=== PATIENT | male | born 1940 | race Caucasian/White ===

== ENCOUNTER 2018-04-11 06:31 | Inpatient (IN) | payer BC, MEDICARE, OTHER ==
[2018-04-11 07:42] LABS: OCCULT BLOOD STOOL POSITIVE (NEGATIVE)
[2018-04-11 08:01] LABS: ADD MAN DIFF? NO
[2018-04-11] MEDS: SOD CHLORIDE 0.9% 500 ML IV (08:11)
[2018-04-11 08:14] LABS: WHITE BLOOD COUNT 11.7 10^3/ul (4.8-10.8)
[2018-04-11 08:14] LABS: BASOPHIL # 0.1 10^3/ul (0.0-0.1); BASOPHILS % 0.4 % (0.0-2.0); EOSINOPHILS # 0.2 10^3/ul (0.0-0.5); EOSINOPHILS % 1.3 % (0.0-7.0); HEMATOCRIT 30.9 % (42.0-52.0); HEMOGLOBIN 9.4 g/dl (14.0-18.0); LYMPHOCYTES % 8.7 % (15.0-51.0); MEAN CORPUSCULAR HEMOGLOBIN 30.9 pg (29.0-33.0); MEAN CORPUSCULAR HGB CONC 30.4 g/dl (32.0-37.0); MEAN CORPUSCULAR VOLUME 101.6 fl (82.0-101.0); MEAN PLATELET VOLUME 10.8 fl (7.4-10.4); MONOCYTE # 1.2 10^3/ul (0.3-0.9); MONOCYTES % 10.6 % (0.0-11.0); NEUTROPHIL # 9.2 10^3/ul (1.6-7.5); NEUTROPHILS % 78.5 % (39.0-77.0); PLATELET COUNT 253 10^3/UL (140-415); RED BLOOD COUNT 3.04 10^6/ul (4.70-6.10); RED CELL DISTRIBUTION WIDTH 17.4 % (11.5-14.5)
[2018-04-11 08:24] LABS: INR 1.14; PROTIME 14.7 Sec (11.9-14.9); PT RATIO 1.1
[2018-04-11 08:25] LABS: PARTIAL THROMBOPLASTIN TIME 33.4 Sec (23.0-35.0)
[2018-04-11 08:31] LABS: ALANINE AMINOTRANSFERASE 14 IU/L (13-69); ALBUMIN 2.9 g/dl (3.3-4.9); ALBUMIN/GLOBULIN RATIO 0.87; ALKALINE PHOSPHATASE 100 IU/L (42-121); AMYLASE 34 U/L (11-123); ASPARTATE AMINO TRANSFERASE 11 IU/L (15-46); BLOOD UREA NITROGEN 48 mg/dl (7-20); CALCIUM 8.2 mg/dl (8.4-10.2); CARBON DIOXIDE 30 mmol/L (21-31); CREATININE 6.67 mg/dl (0.61-1.24); TOTAL PROTEIN 6.2 g/dl (6.1-8.1)
[2018-04-11 08:32] LABS: LIPASE < 10 U/L (23-300)
[2018-04-11 08:35] LABS: GLUCOSE 45 mg/dl (70-220)
[2018-04-11 08:39] LABS: TROPONIN-I 0.052 ng/ml (0.000-0.120)
[2018-04-11 08:45] LABS: ANION GAP 12 (5-13); POTASSIUM 5.1 mmol/L (3.5-5.1); SODIUM 137 mmol/L (135-144)
[2018-04-11] MEDS: DEXTROSE 50% 50 ML SYRINGE IV (08:47)
[2018-04-11 09:04] LABS: CHLORIDE 95 mmol/L (97-110)
[2018-04-11] MEDS: SOD CHLORIDE 0.9% 100 ML (10:45)
[2018-04-11] MEDS: IOHEXOL 300MG/ML 150 ML BTL (10:45)
[2018-04-11] MEDS ORDERED: ONDANSETRON 4 MG INJ IV (11:00)
[2018-04-11] MEDS ORDERED: ACETAMINOPHEN 325 MG TAB PO (11:00)
[2018-04-11] MEDS ORDERED: NACL 0.9% 3 ML SYG IV (13:00)
[2018-04-11] MEDS ORDERED: ZOLPIDEM 5 MG TAB PO (13:00)
[2018-04-11] MEDS ORDERED: HYDROCODONE/APAP (5/325) TAB PO (13:00)
[2018-04-11] MEDS ORDERED: MAGNESIUM HYDROXIDE 30ML CUP PO (13:00)
[2018-04-11] MEDS ORDERED: DOCUSATE SODIUM 100 MG CAP PO (13:00)
[2018-04-11] MEDS ORDERED: morphine 2 MG INJ IV (13:00)
[2018-04-11] MEDS ORDERED: GLUCOSE GEL 15 GRAM TUBE PO ×2 (13:30)
[2018-04-11] MEDS ORDERED: GLUCAGON 1 MG INJ IM (13:30)
[2018-04-11] MEDS ORDERED: GLUCOSE GEL 15 GRAM TUBE BUCCAL (13:30)
[2018-04-11] MEDS: INSULIN ASPART [NOVOLOG] 3 ML PEN SC ×2 (18:00→21:00)
[2018-04-11] MEDS ORDERED: MIDODRINE 5 MG TAB PO (18:00)
[2018-04-11] MEDS: SEVELAMER CARBONATE 0.8 GM PKT PO (18:41)
[2018-04-11] MEDS: DEXTROSE 5%-0.45% NACL 1,000 ML IV (18:56)
[2018-04-11] MEDS: NORTRIPTYLINE 10 MG CAP PO (21:00)
[2018-04-11] MEDS: FAMOTIDINE 20 MG TAB PO (21:49)
[2018-04-12] MEDS: ACCU-CHEK XX (01:41)
[2018-04-12] MEDS: LEVOTHYROXINE 50 MCG TAB PO (06:29)
[2018-04-12 06:51] LABS: ADD MAN DIFF? NO
[2018-04-12 06:54] LABS: WHITE BLOOD COUNT 12.4 10^3/ul (4.8-10.8)
[2018-04-12 06:54] LABS: BASOPHIL # 0.1 10^3/ul (0.0-0.1); BASOPHILS % 0.8 % (0.0-2.0); EOSINOPHILS # 0.2 10^3/ul (0.0-0.5); EOSINOPHILS % 1.9 % (0.0-7.0); HEMATOCRIT 30.6 % (42.0-52.0); HEMOGLOBIN 9.3 g/dl (14.0-18.0); LYMPHOCYTES # 0.8 10^3/ul (0.8-2.9); LYMPHOCYTES % 6.4 % (15.0-51.0); MEAN CORPUSCULAR HEMOGLOBIN 31.1 pg (29.0-33.0); MEAN CORPUSCULAR HGB CONC 30.4 g/dl (32.0-37.0); MEAN CORPUSCULAR VOLUME 102.3 fl (82.0-101.0); MEAN PLATELET VOLUME 10.6 fl (7.4-10.4); MONOCYTE # 1.1 10^3/ul (0.3-0.9); NEUTROPHIL # 10.1 10^3/ul (1.6-7.5); NEUTROPHILS % 81.5 % (39.0-77.0); PLATELET COUNT 264 10^3/UL (140-415); RED BLOOD COUNT 2.99 10^6/ul (4.70-6.10); RED CELL DISTRIBUTION WIDTH 17.4 % (11.5-14.5)
[2018-04-12 07:35] LABS: OCCULT BLOOD STOOL POSITIVE (NEGATIVE)
[2018-04-12] MEDS: FAMOTIDINE 20 MG TAB PO (08:19)
[2018-04-12] MEDS: SEVELAMER CARBONATE 0.8 GM PKT PO ×3 (08:19→17:15)
[2018-04-12] MEDS: FOLIC ACID 1 MG TAB PO (08:19)
[2018-04-12] MEDS: NORTRIPTYLINE 10 MG CAP PO ×3 (08:20→20:37)
[2018-04-12] MEDS: CHOLECALCIFEROL 1,000 UNIT TAB PO (08:20)
[2018-04-12] MEDS: INSULIN ASPART [NOVOLOG] 3 ML PEN SC ×4 (08:27→20:36)
[2018-04-12 08:33] LABS: ANION GAP 15 (5-13); BLOOD UREA NITROGEN 59 mg/dl (7-20); CALCIUM 8.2 mg/dl (8.4-10.2); CARBON DIOXIDE 24 mmol/L (21-31); CHLORIDE 96 mmol/L (97-110); CREATININE 7.88 mg/dl (0.61-1.24); GLUCOSE 247 mg/dl (70-220); MAGNESIUM 1.9 mg/dl (1.7-2.5); PHOSPHORUS 7.8 mg/dl (2.5-4.9); SODIUM 135 mmol/L (135-144)
[2018-04-12 08:43] LABS: POTASSIUM 6.2 mmol/L (3.5-5.1)
[2018-04-12] MEDS: SODIUM POLYSTYRENE 15 GM KIT (POWDER + SORBITOL) GTB (09:24)
[2018-04-12 09:59] LABS: HEMOGLOBIN A1C 6.4 % (0-5.9)
[2018-04-12] MEDS: MIDODRINE 5 MG TAB PO (10:08)
[2018-04-12] MEDS: INSULIN GLARGINE [LANTus] (100 UNITS/ML) SYG SC (12:32)
[2018-04-12 13:51] LABS: HEPATITIS B SURFACE ANTIGEN NEGATIVE (NEGATIVE)
[2018-04-12 14:08] LABS: HEPATITIS B SURFACE ANTIBODY POSITIVE (NEGATIVE)
[2018-04-12 16:24] LABS: POTASSIUM 4.1 mmol/L (3.5-5.1)
[2018-04-13] MEDS: ACCU-CHEK XX (02:00)
[2018-04-13] MEDS: LEVOTHYROXINE 50 MCG TAB PO (06:36)
[2018-04-13 07:30] LABS: ANION GAP 13 (5-13); BLOOD UREA NITROGEN 29 mg/dl (7-20); CALCIUM 8.3 mg/dl (8.4-10.2); CARBON DIOXIDE 31 mmol/L (21-31); CHLORIDE 93 mmol/L (97-110); CREATININE 5.56 mg/dl (0.61-1.24); PHOSPHORUS 5.8 mg/dl (2.5-4.9); POTASSIUM 4.3 mmol/L (3.5-5.1); SODIUM 137 mmol/L (135-144); URIC ACID 4.9 mg/dl (3.1-7.9)
[2018-04-13 07:35] LABS: GLUCOSE 44 mg/dl (70-220)
[2018-04-13] MEDS: INSULIN ASPART [NOVOLOG] 3 ML PEN SC ×4 (07:44→20:43)
[2018-04-13] MEDS: SEVELAMER CARBONATE 0.8 GM PKT PO ×3 (07:49→17:41)
[2018-04-13] MEDS: FOLIC ACID 1 MG TAB PO (08:10)
[2018-04-13] MEDS: FAMOTIDINE 20 MG TAB PO (08:10)
[2018-04-13] MEDS: CHOLECALCIFEROL 1,000 UNIT TAB PO (08:10)
[2018-04-13] MEDS: NORTRIPTYLINE 10 MG CAP PO ×3 (08:11→20:44)
[2018-04-13] MEDS: INSULIN GLARGINE [LANTus] (100 UNITS/ML) SYG SC (08:35)
[2018-04-13] MEDS: BISACODYL (EC) 5 MG TAB PO ×3 (13:12→22:25)
[2018-04-13] MEDS: PEG/ELECTROLYTES 4L BTL PO ×2 (15:23→22:26)
[2018-04-13 16:23] LABS: CARCINOEMBRYONIC ANTIGEN 2.2 ng/ml (0.0-5.0)
[2018-04-13] MEDS ORDERED: MAGNESIUM CITRATE 300 ML BTL PO (17:30)
[2018-04-13] MEDS ORDERED: POLYETHYLENE GLYCOL 3350 119 GM POWDER PO (18:30)
[2018-04-14] MEDS: ACCU-CHEK XX (00:56)
[2018-04-14] MEDS ORDERED: POLYETHYLENE GLYCOL 3350 119 GM POWDER PO (06:00)
[2018-04-14] MEDS: LEVOTHYROXINE 50 MCG TAB PO (06:46)
[2018-04-14] MEDS: SEVELAMER CARBONATE 0.8 GM PKT PO ×3 (07:25→16:58)
[2018-04-14 07:44] LABS: ADD MAN DIFF? NO
[2018-04-14 07:53] LABS: WHITE BLOOD COUNT 7.6 10^3/ul (4.8-10.8)
[2018-04-14 07:53] LABS: BASOPHIL # 0.1 10^3/ul (0.0-0.1); BASOPHILS % 1.1 % (0.0-2.0); EOSINOPHILS # 0.4 10^3/ul (0.0-0.5); EOSINOPHILS % 5.5 % (0.0-7.0); HEMATOCRIT 31.2 % (42.0-52.0); HEMOGLOBIN 9.6 g/dl (14.0-18.0); LYMPHOCYTES # 1.2 10^3/ul (0.8-2.9); LYMPHOCYTES % 15.8 % (15.0-51.0); MEAN CORPUSCULAR HEMOGLOBIN 31.2 pg (29.0-33.0); MEAN CORPUSCULAR HGB CONC 30.8 g/dl (32.0-37.0); MEAN CORPUSCULAR VOLUME 101.3 fl (82.0-101.0); MEAN PLATELET VOLUME 10.6 fl (7.4-10.4); MONOCYTE # 0.9 10^3/ul (0.3-0.9); MONOCYTES % 11.8 % (0.0-11.0); NEUTROPHILS % 65.3 % (39.0-77.0); PLATELET COUNT 280 10^3/UL (140-415); RED BLOOD COUNT 3.08 10^6/ul (4.70-6.10); RED CELL DISTRIBUTION WIDTH 17.1 % (11.5-14.5)
[2018-04-14] MEDS: INSULIN ASPART [NOVOLOG] 3 ML PEN SC ×4 (07:55→20:44)
[2018-04-14] MEDS ORDERED: BISACODYL (EC) 5 MG TAB PO (08:00)
[2018-04-14] MEDS: INSULIN GLARGINE [LANTus] (100 UNITS/ML) SYG SC (08:00)
[2018-04-14 08:15] LABS: ALANINE AMINOTRANSFERASE 14 IU/L (13-69); ALBUMIN 2.9 g/dl (3.3-4.9); ALBUMIN/GLOBULIN RATIO 0.87; ALKALINE PHOSPHATASE 98 IU/L (42-121); ANION GAP 17 (5-13); ASPARTATE AMINO TRANSFERASE 12 IU/L (15-46); BLOOD UREA NITROGEN 33 mg/dl (7-20); CALCIUM 8.1 mg/dl (8.4-10.2); CARBON DIOXIDE 29 mmol/L (21-31); CHLORIDE 91 mmol/L (97-110); CREATININE 6.77 mg/dl (0.61-1.24); GLUCOSE 88 mg/dl (70-220); POTASSIUM 4.5 mmol/L (3.5-5.1); SODIUM 137 mmol/L (135-144); TOTAL PROTEIN 6.2 g/dl (6.1-8.1)
[2018-04-14] MEDS: NORTRIPTYLINE 10 MG CAP PO ×3 (08:17→20:45)
[2018-04-14] MEDS: CHOLECALCIFEROL 1,000 UNIT TAB PO (08:17)
[2018-04-14] MEDS: FOLIC ACID 1 MG TAB PO (08:17)
[2018-04-14] MEDS: FAMOTIDINE 20 MG TAB PO (08:18)
[2018-04-14 08:23] LABS: PROTIME 14.3 Sec (11.9-14.9); PT RATIO 1.1
[2018-04-14] MEDS ORDERED: ONDANSETRON 4 MG INJ IV (13:00)
[2018-04-14] MEDS ORDERED: FENTAnyl 50 MCG/ML VIAL IV ×3 (13:00)
[2018-04-15] MEDS: ACCU-CHEK XX (02:00)
[2018-04-15] MEDS: LEVOTHYROXINE 50 MCG TAB PO (06:33)
[2018-04-15] MEDS: INSULIN ASPART [NOVOLOG] 3 ML PEN SC ×4 (07:55→21:00)
[2018-04-15] MEDS: INSULIN GLARGINE [LANTus] (100 UNITS/ML) SYG SC (08:00)
[2018-04-15] MEDS: SEVELAMER CARBONATE 0.8 GM PKT PO ×3 (09:11→18:40)
[2018-04-15] MEDS: NORTRIPTYLINE 10 MG CAP PO ×3 (09:11→20:57)
[2018-04-15] MEDS: FAMOTIDINE 20 MG TAB PO (09:13)
[2018-04-15] MEDS: CHOLECALCIFEROL 1,000 UNIT TAB PO (09:13)
[2018-04-15] MEDS: FOLIC ACID 1 MG TAB PO (09:14)
[2018-04-15] MEDS: ACETAMINOPHEN 325 MG TAB PO (12:57)
[2018-04-15] MEDS ORDERED: morphine LIQ (10 MG/5 ML) CUP PO (23:30)
[2018-04-16] MEDS: ACCU-CHEK XX (02:00)
[2018-04-16 05:56] LABS: ADD MAN DIFF? NO
[2018-04-16] MEDS: LEVOTHYROXINE 50 MCG TAB PO (05:57)
[2018-04-16 06:06] LABS: WHITE BLOOD COUNT 9.2 10^3/ul (4.8-10.8)
[2018-04-16 06:06] LABS: BASOPHIL # 0.1 10^3/ul (0.0-0.1); EOSINOPHILS # 0.4 10^3/ul (0.0-0.5); EOSINOPHILS % 4.2 % (0.0-7.0); HEMATOCRIT 34.7 % (42.0-52.0); HEMOGLOBIN 10.4 g/dl (14.0-18.0); LYMPHOCYTES % 10.6 % (15.0-51.0); MEAN CORPUSCULAR HEMOGLOBIN 30.7 pg (29.0-33.0); MEAN CORPUSCULAR VOLUME 102.4 fl (82.0-101.0); MONOCYTE # 0.8 10^3/ul (0.3-0.9); MONOCYTES % 8.7 % (0.0-11.0); NEUTROPHIL # 6.9 10^3/ul (1.6-7.5); PLATELET COUNT 233 10^3/UL (140-415); RED BLOOD COUNT 3.39 10^6/ul (4.70-6.10); RED CELL DISTRIBUTION WIDTH 17.1 % (11.5-14.5)
[2018-04-16 06:52] LABS: ANION GAP 13 (5-13); BLOOD UREA NITROGEN 29 mg/dl (7-20); CALCIUM 8.3 mg/dl (8.4-10.2); CARBON DIOXIDE 26 mmol/L (21-31); CHLORIDE 97 mmol/L (97-110); CREATININE 6.73 mg/dl (0.61-1.24); GLUCOSE 135 mg/dl (70-220); MAGNESIUM 1.9 mg/dl (1.7-2.5); POTASSIUM 5.6 mmol/L (3.5-5.1); SODIUM 136 mmol/L (135-144)
[2018-04-16] MEDS: INSULIN ASPART [NOVOLOG] 3 ML PEN SC ×4 (07:55→20:11)
[2018-04-16] MEDS: SEVELAMER CARBONATE 0.8 GM PKT PO ×3 (08:07→17:49)
[2018-04-16] MEDS: NORTRIPTYLINE 10 MG CAP PO ×3 (08:08→20:02)
[2018-04-16] MEDS: FOLIC ACID 1 MG TAB PO (08:08)
[2018-04-16] MEDS: FAMOTIDINE 20 MG TAB PO (08:08)
[2018-04-16] MEDS: CHOLECALCIFEROL 1,000 UNIT TAB PO (08:08)
[2018-04-16] MEDS: INSULIN GLARGINE [LANTus] (100 UNITS/ML) SYG SC (08:22)
[2018-04-16] MEDS: MIDODRINE 5 MG TAB PO (09:54)
[2018-04-16] MEDS: GABAPENTIN 100 MG CAP PO (12:38)
[2018-04-16] MEDS: PROPOFOL 20 ML ×2 (20:16)
[2018-04-16] MEDS: PROPOFOL 0 ML (20:16)
[2018-04-17] MEDS: CEPASTAT LOZENGE MT (02:34)
[2018-04-17] MEDS: ACCU-CHEK XX (02:36)
[2018-04-17] MEDS: LEVOTHYROXINE 50 MCG TAB PO (06:14)
[2018-04-17] MEDS: SEVELAMER CARBONATE 0.8 GM PKT PO ×3 (07:28→18:10)
[2018-04-17] MEDS: INSULIN ASPART [NOVOLOG] 3 ML PEN SC ×4 (07:33→20:40)
[2018-04-17] MEDS: INSULIN GLARGINE [LANTus] (100 UNITS/ML) SYG SC (07:42)
[2018-04-17] MEDS: FOLIC ACID 1 MG TAB PO (08:31)
[2018-04-17] MEDS: GABAPENTIN 100 MG CAP PO (08:31)
[2018-04-17] MEDS: FAMOTIDINE 20 MG TAB PO (08:32)
[2018-04-17] MEDS: CHOLECALCIFEROL 1,000 UNIT TAB PO (08:32)
[2018-04-17] MEDS: NORTRIPTYLINE 10 MG CAP PO ×3 (08:32→20:35)
[2018-04-18] MEDS: ACCU-CHEK XX (00:20)
[2018-04-18] MEDS: LEVOTHYROXINE 50 MCG TAB PO (06:17)
[2018-04-18 06:56] LABS: ADD MAN DIFF? NO
[2018-04-18 06:59] LABS: BASOPHIL # 0.1 10^3/ul (0.0-0.1); BASOPHILS % 0.7 % (0.0-2.0); EOSINOPHILS # 0.3 10^3/ul (0.0-0.5); EOSINOPHILS % 2.9 % (0.0-7.0); HEMATOCRIT 34.3 % (42.0-52.0); HEMOGLOBIN 10.5 g/dl (14.0-18.0); LYMPHOCYTES % 9.9 % (15.0-51.0); MEAN CORPUSCULAR HEMOGLOBIN 30.9 pg (29.0-33.0); MEAN CORPUSCULAR HGB CONC 30.6 g/dl (32.0-37.0); MEAN CORPUSCULAR VOLUME 100.9 fl (82.0-101.0); MEAN PLATELET VOLUME 10.6 fl (7.4-10.4); MONOCYTE # 1.3 10^3/ul (0.3-0.9); MONOCYTES % 12.3 % (0.0-11.0); NEUTROPHIL # 7.6 10^3/ul (1.6-7.5); NEUTROPHILS % 73.6 % (39.0-77.0); PLATELET COUNT 212 10^3/UL (140-415); RED CELL DISTRIBUTION WIDTH 16.7 % (11.5-14.5)
[2018-04-18 06:59] LABS: WHITE BLOOD COUNT 10.4 10^3/ul (4.8-10.8)
[2018-04-18 07:53] LABS: ALBUMIN 2.8 g/dl (3.3-4.9); ANION GAP 12 (5-13); BLOOD UREA NITROGEN 25 mg/dl (7-20); CALCIUM 8.2 mg/dl (8.4-10.2); CARBON DIOXIDE 27 mmol/L (21-31); CHLORIDE 98 mmol/L (97-110); CREATININE 6.63 mg/dl (0.61-1.24); GLUCOSE 79 mg/dl (70-220); MAGNESIUM 1.9 mg/dl (1.7-2.5); POTASSIUM 4.6 mmol/L (3.5-5.1); SODIUM 137 mmol/L (135-144)
[2018-04-18] MEDS: INSULIN ASPART [NOVOLOG] 3 ML PEN SC ×4 (07:55→22:00)
[2018-04-18] MEDS: SEVELAMER CARBONATE 0.8 GM PKT PO ×3 (08:01→17:23)
[2018-04-18] MEDS: FOLIC ACID 1 MG TAB PO (08:01)
[2018-04-18] MEDS: GABAPENTIN 100 MG CAP PO (08:01)
[2018-04-18] MEDS: FAMOTIDINE 20 MG TAB PO (08:02)
[2018-04-18] MEDS: CHOLECALCIFEROL 1,000 UNIT TAB PO (08:02)
[2018-04-18] MEDS: INSULIN GLARGINE [LANTus] (100 UNITS/ML) SYG SC (09:14)
[2018-04-18] MEDS: NORTRIPTYLINE 10 MG CAP PO ×3 (13:00→23:55)
[2018-04-18] MEDS: MIDODRINE 5 MG TAB PO (20:09)
[2018-04-18] MEDS: ALBUMIN HUMAN 25% 100 ML IV (20:22)
[2018-04-19] MEDS: ACCU-CHEK XX (02:00)
[2018-04-19 06:19] LABS: ADD MAN DIFF? NO
[2018-04-19 06:41] LABS: WHITE BLOOD COUNT 8.5 10^3/ul (4.8-10.8)
[2018-04-19 06:41] LABS: BASOPHIL # 0.1 10^3/ul (0.0-0.1); BASOPHILS % 0.9 % (0.0-2.0); EOSINOPHILS # 0.4 10^3/ul (0.0-0.5); EOSINOPHILS % 4.4 % (0.0-7.0); HEMATOCRIT 30.9 % (42.0-52.0); HEMOGLOBIN 9.7 g/dl (14.0-18.0); MEAN CORPUSCULAR HEMOGLOBIN 31.4 pg (29.0-33.0); MEAN CORPUSCULAR HGB CONC 31.4 g/dl (32.0-37.0); NEUTROPHILS % 70.3 % (39.0-77.0); PLATELET COUNT 162 10^3/UL (140-415); RED BLOOD COUNT 3.09 10^6/ul (4.70-6.10); RED CELL DISTRIBUTION WIDTH 16.7 % (11.5-14.5)
[2018-04-19] MEDS: LEVOTHYROXINE 50 MCG TAB PO (07:07)
[2018-04-19 07:15] LABS: ALBUMIN 2.8 g/dl (3.3-4.9); ANION GAP 8 (5-13); BLOOD UREA NITROGEN 18 mg/dl (7-20); CALCIUM 8.1 mg/dl (8.4-10.2); CARBON DIOXIDE 33 mmol/L (21-31); CHLORIDE 98 mmol/L (97-110); CREATININE 4.99 mg/dl (0.61-1.24); GLUCOSE 77 mg/dl (70-220); MAGNESIUM 1.8 mg/dl (1.7-2.5); PHOSPHORUS 4.7 mg/dl (2.5-4.9); POTASSIUM 3.9 mmol/L (3.5-5.1); SODIUM 139 mmol/L (135-144)
[2018-04-19] MEDS: INSULIN ASPART [NOVOLOG] 3 ML PEN SC ×4 (07:55→20:36)
[2018-04-19] MEDS: SEVELAMER CARBONATE 0.8 GM PKT PO ×3 (07:58→17:38)
[2018-04-19] MEDS: INSULIN GLARGINE [LANTus] (100 UNITS/ML) SYG SC (08:02)
[2018-04-19] MEDS: CHOLECALCIFEROL 1,000 UNIT TAB PO (08:06)
[2018-04-19] MEDS: FOLIC ACID 1 MG TAB PO (08:06)
[2018-04-19] MEDS: FAMOTIDINE 20 MG TAB PO (08:06)
[2018-04-19] MEDS: GABAPENTIN 100 MG CAP PO (08:06)
[2018-04-19] MEDS: NORTRIPTYLINE 10 MG CAP PO ×3 (08:12→20:32)
[2018-04-20] MEDS: ACCU-CHEK XX (01:10)
[2018-04-20] MEDS: LEVOTHYROXINE 50 MCG TAB PO (06:14)
[2018-04-20 06:38] LABS: ADD MAN DIFF? NO
[2018-04-20 06:44] LABS: WHITE BLOOD COUNT 9.2 10^3/ul (4.8-10.8)
[2018-04-20 06:44] LABS: BASOPHIL # 0.1 10^3/ul (0.0-0.1); BASOPHILS % 0.9 % (0.0-2.0); EOSINOPHILS # 0.3 10^3/ul (0.0-0.5); EOSINOPHILS % 2.9 % (0.0-7.0); HEMATOCRIT 30.4 % (42.0-52.0); HEMOGLOBIN 9.4 g/dl (14.0-18.0); LYMPHOCYTES # 1.4 10^3/ul (0.8-2.9); LYMPHOCYTES % 15.1 % (15.0-51.0); MEAN CORPUSCULAR HEMOGLOBIN 31.5 pg (29.0-33.0); MEAN CORPUSCULAR HGB CONC 30.9 g/dl (32.0-37.0); MEAN PLATELET VOLUME 11.6 fl (7.4-10.4); MONOCYTE # 1.3 10^3/ul (0.3-0.9); NEUTROPHIL # 6.1 10^3/ul (1.6-7.5); NEUTROPHILS % 66.6 % (39.0-77.0); PLATELET COUNT 125 10^3/UL (140-415); RED BLOOD COUNT 2.98 10^6/ul (4.70-6.10); RED CELL DISTRIBUTION WIDTH 16.8 % (11.5-14.5)
[2018-04-20 07:02] LABS: ALBUMIN 2.7 g/dl (3.3-4.9); ANION GAP 8 (5-13); BLOOD UREA NITROGEN 29 mg/dl (7-20); CALCIUM 8.1 mg/dl (8.4-10.2); CARBON DIOXIDE 33 mmol/L (21-31); CHLORIDE 97 mmol/L (97-110); CREATININE 6.37 mg/dl (0.61-1.24); GLUCOSE 134 mg/dl (70-220); MAGNESIUM 1.9 mg/dl (1.7-2.5); PHOSPHORUS 5.1 mg/dl (2.5-4.9); SODIUM 138 mmol/L (135-144)
[2018-04-20 07:05] LABS: POTASSIUM 4.6 mmol/L (3.5-5.1)
[2018-04-20] MEDS: SEVELAMER CARBONATE 0.8 GM PKT PO ×3 (07:45→17:36)
[2018-04-20] MEDS: INSULIN ASPART [NOVOLOG] 3 ML PEN SC ×4 (07:46→20:46)
[2018-04-20] MEDS: INSULIN GLARGINE [LANTus] (100 UNITS/ML) SYG SC (08:09)
[2018-04-20] MEDS: NORTRIPTYLINE 10 MG CAP PO ×3 (08:38→20:33)
[2018-04-20] MEDS: FOLIC ACID 1 MG TAB PO (08:38)
[2018-04-20] MEDS: CHOLECALCIFEROL 1,000 UNIT TAB PO (08:38)
[2018-04-20] MEDS: FAMOTIDINE 20 MG TAB PO (08:38)
[2018-04-20] MEDS: GABAPENTIN 100 MG CAP PO (08:38)
[2018-04-20] MEDS ORDERED: POLYETHYLENE GLYCOL 17 GM PACKET PO (11:00)
[2018-04-21] MEDS: ACCU-CHEK XX (02:00)
[2018-04-21 06:07] LABS: ADD MAN DIFF? NO
[2018-04-21 06:14] LABS: WHITE BLOOD COUNT 9.3 10^3/ul (4.8-10.8)
[2018-04-21 06:14] LABS: BASOPHIL # 0.1 10^3/ul (0.0-0.1); BASOPHILS % 0.9 % (0.0-2.0); EOSINOPHILS # 0.3 10^3/ul (0.0-0.5); EOSINOPHILS % 3.1 % (0.0-7.0); HEMATOCRIT 31.8 % (42.0-52.0); HEMOGLOBIN 9.9 g/dl (14.0-18.0); LYMPHOCYTES # 1.4 10^3/ul (0.8-2.9); MEAN CORPUSCULAR HEMOGLOBIN 30.8 pg (29.0-33.0); MEAN CORPUSCULAR HGB CONC 31.1 g/dl (32.0-37.0); MEAN CORPUSCULAR VOLUME 99.1 fl (82.0-101.0); MEAN PLATELET VOLUME 11.7 fl (7.4-10.4); MONOCYTE # 1.1 10^3/ul (0.3-0.9); MONOCYTES % 12.2 % (0.0-11.0); NEUTROPHIL # 6.4 10^3/ul (1.6-7.5); NEUTROPHILS % 68.5 % (39.0-77.0); PLATELET COUNT 143 10^3/UL (140-415); RED BLOOD COUNT 3.21 10^6/ul (4.70-6.10); RED CELL DISTRIBUTION WIDTH 16.4 % (11.5-14.5)
[2018-04-21 06:50] LABS: ALBUMIN 2.7 g/dl (3.3-4.9); ANION GAP 11 (5-13); BLOOD UREA NITROGEN 40 mg/dl (7-20); CARBON DIOXIDE 29 mmol/L (21-31); CHLORIDE 97 mmol/L (97-110); CREATININE 7.69 mg/dl (0.61-1.24); GLUCOSE 81 mg/dl (70-220); MAGNESIUM 1.8 mg/dl (1.7-2.5); PHOSPHORUS 5.9 mg/dl (2.5-4.9); POTASSIUM 4.6 mmol/L (3.5-5.1); SODIUM 137 mmol/L (135-144)
[2018-04-21] MEDS: LEVOTHYROXINE 50 MCG TAB PO (07:36)
[2018-04-21] MEDS: INSULIN ASPART [NOVOLOG] 3 ML PEN SC ×4 (07:37→21:00)
[2018-04-21] MEDS: SEVELAMER CARBONATE 0.8 GM PKT PO ×3 (07:37→17:33)
[2018-04-21] MEDS: INSULIN GLARGINE [LANTus] (100 UNITS/ML) SYG SC (07:43)
[2018-04-21] MEDS: FAMOTIDINE 20 MG TAB PO (09:06)
[2018-04-21] MEDS: GABAPENTIN 100 MG CAP PO (09:06)
[2018-04-21] MEDS: FOLIC ACID 1 MG TAB PO (09:06)
[2018-04-21] MEDS: CHOLECALCIFEROL 1,000 UNIT TAB PO (09:06)
[2018-04-21] MEDS: NORTRIPTYLINE 10 MG CAP PO ×3 (09:07→21:01)
[2018-04-21] MEDS: ALBUMIN HUMAN 25% 100 ML IV (09:17)
[2018-04-21] MEDS: MIDODRINE 5 MG TAB PO (09:34)
[2018-04-22] MEDS: ACCU-CHEK XX (02:00)
[2018-04-22] MEDS: LEVOTHYROXINE 50 MCG TAB PO (06:05)
[2018-04-22 06:26] LABS: ADD MAN DIFF? NO
[2018-04-22 06:30] LABS: WHITE BLOOD COUNT 8.4 10^3/ul (4.8-10.8)
[2018-04-22 06:30] LABS: BASOPHIL # 0.1 10^3/ul (0.0-0.1); BASOPHILS % 0.7 % (0.0-2.0); EOSINOPHILS # 0.2 10^3/ul (0.0-0.5); EOSINOPHILS % 2.4 % (0.0-7.0); HEMATOCRIT 31.1 % (42.0-52.0); HEMOGLOBIN 9.5 g/dl (14.0-18.0); LYMPHOCYTES # 1.2 10^3/ul (0.8-2.9); LYMPHOCYTES % 13.9 % (15.0-51.0); MEAN CORPUSCULAR HEMOGLOBIN 30.9 pg (29.0-33.0); MEAN CORPUSCULAR HGB CONC 30.5 g/dl (32.0-37.0); MEAN CORPUSCULAR VOLUME 101.3 fl (82.0-101.0); MEAN PLATELET VOLUME 11.9 fl (7.4-10.4); MONOCYTE # 1.1 10^3/ul (0.3-0.9); MONOCYTES % 12.7 % (0.0-11.0); NEUTROPHIL # 5.9 10^3/ul (1.6-7.5); NEUTROPHILS % 69.6 % (39.0-77.0); PLATELET COUNT 134 10^3/UL (140-415); POSITIVE DIFF @See below; RED BLOOD COUNT 3.07 10^6/ul (4.70-6.10); RED CELL DISTRIBUTION WIDTH 16.4 % (11.5-14.5)
[2018-04-22] MEDS: INSULIN ASPART [NOVOLOG] 3 ML PEN SC ×4 (07:54→20:44)
[2018-04-22 08:12] LABS: ANION GAP 10 (5-13); BLOOD UREA NITROGEN 29 mg/dl (7-20); CALCIUM 8.3 mg/dl (8.4-10.2); CARBON DIOXIDE 31 mmol/L (21-31); CHLORIDE 97 mmol/L (97-110); CREATININE 5.35 mg/dl (0.61-1.24); GLUCOSE 121 mg/dl (70-220); MAGNESIUM 1.9 mg/dl (1.7-2.5); PHOSPHORUS 4.3 mg/dl (2.5-4.9); POTASSIUM 4.3 mmol/L (3.5-5.1); SODIUM 138 mmol/L (135-144)
[2018-04-22] MEDS: SEVELAMER CARBONATE 0.8 GM PKT PO ×3 (08:12→17:48)
[2018-04-22] MEDS: INSULIN GLARGINE [LANTus] (100 UNITS/ML) SYG SC (08:12)
[2018-04-22] MEDS: NORTRIPTYLINE 10 MG CAP PO ×3 (09:07→20:44)
[2018-04-22] MEDS: GABAPENTIN 100 MG CAP PO (09:07)
[2018-04-22] MEDS: CHOLECALCIFEROL 1,000 UNIT TAB PO (09:07)
[2018-04-22] MEDS: FOLIC ACID 1 MG TAB PO (09:07)
[2018-04-22] MEDS: FAMOTIDINE 20 MG TAB PO (09:07)
[2018-04-22 09:23] LABS: ANISOCYTOSIS 1+ (0-0); EOSINOPHILS % (M) 1 % (0-7); HYPOCHROMASIA 1+ (0-0); LYMPHOCYTES #M 0.9 10^3/ul (0.8-2.9); LYMPHOCYTES % (M) 11 % (15-51); MONOCYTE #M 0.8 10^3/ul (0.3-0.9); MONOCYTES % (M) 10 % (0-11); PLATELET ESTIMATE DECREASED; POIKILOCYTOSIS 1+ (0-0); POLYCHROMASIA 2+ (0-0); REACTIVE LYMPHOCYTES% (M) 1 % (0-0); SEGMENTED NEUTROPHILS (M) % 77 % (39-77); SMUDGE%M 3 % (0-0)
[2018-04-22] MEDS: SOD CHLORIDE 0.45% 1,000 ML IV (13:00)
[2018-04-22] MEDS: POLYETHYLENE GLYCOL 3350 119 GM POWDER PO (17:48)
[2018-04-23] MEDS: ACCU-CHEK XX (02:00)
[2018-04-23 06:41] LABS: ADD MAN DIFF? NO
[2018-04-23 06:44] LABS: WHITE BLOOD COUNT 11.4 10^3/ul (4.8-10.8)
[2018-04-23 06:44] LABS: BASOPHIL # 0.1 10^3/ul (0.0-0.1); BASOPHILS % 0.6 % (0.0-2.0); EOSINOPHILS # 0.1 10^3/ul (0.0-0.5); EOSINOPHILS % 0.8 % (0.0-7.0); HEMATOCRIT 32.9 % (42.0-52.0); HEMOGLOBIN 9.9 g/dl (14.0-18.0); LYMPHOCYTES # 0.9 10^3/ul (0.8-2.9); LYMPHOCYTES % 8.2 % (15.0-51.0); MEAN CORPUSCULAR HGB CONC 30.1 g/dl (32.0-37.0); MEAN CORPUSCULAR VOLUME 99.7 fl (82.0-101.0); MEAN PLATELET VOLUME 11.7 fl (7.4-10.4); MONOCYTE # 1.3 10^3/ul (0.3-0.9); MONOCYTES % 11.5 % (0.0-11.0); NEUTROPHILS % 78.6 % (39.0-77.0); PLATELET COUNT 153 10^3/UL (140-415); RED CELL DISTRIBUTION WIDTH 16.5 % (11.5-14.5)
[2018-04-23] MEDS: LEVOTHYROXINE 50 MCG TAB PO (06:46)
[2018-04-23] MEDS: SEVELAMER CARBONATE 0.8 GM PKT PO ×3 (06:46→17:25)
[2018-04-23 06:52] LABS: PLATELET COUNT 155 10^3/UL (140-415)
[2018-04-23] MEDS ORDERED: DESFLURANE 15 MIN (07:00)
[2018-04-23] MEDS ORDERED: DEXAMETHASONE 4 MG/ML 5 ML INJ (07:00)
[2018-04-23 07:15] LABS: PROTIME 14.3 Sec (11.9-14.9); PT RATIO 1.1
[2018-04-23 07:16] LABS: ANION GAP 13 (5-13); BLOOD UREA NITROGEN 38 mg/dl (7-20); CALCIUM 8.6 mg/dl (8.4-10.2); CARBON DIOXIDE 29 mmol/L (21-31); CHLORIDE 98 mmol/L (97-110); CREATININE 6.53 mg/dl (0.61-1.24); MAGNESIUM 1.9 mg/dl (1.7-2.5); POTASSIUM 4.6 mmol/L (3.5-5.1); SODIUM 140 mmol/L (135-144)
[2018-04-23 07:18] LABS: PARTIAL THROMBOPLASTIN TIME 24.8 Sec (23.0-35.0); THROMBIN TIME 22.3 SEC (13.8-19.1)
[2018-04-23 07:21] LABS: GLUCOSE 42 mg/dl (70-220)
[2018-04-23] MEDS: DEXTROSE 50% 50 ML SYRINGE IV (07:35)
[2018-04-23] MEDS: INSULIN ASPART [NOVOLOG] 3 ML PEN SC ×3 (07:44→17:55)
[2018-04-23] MEDS: INSULIN GLARGINE [LANTus] (100 UNITS/ML) SYG SC (08:00)
[2018-04-23] MEDS: NORTRIPTYLINE 10 MG CAP PO ×2 (09:00→12:42)
[2018-04-23] MEDS: FAMOTIDINE 20 MG TAB PO (09:00)
[2018-04-23] MEDS: CHOLECALCIFEROL 1,000 UNIT TAB PO (09:00)
[2018-04-23] MEDS: FOLIC ACID 1 MG TAB PO (09:00)
[2018-04-23] MEDS: GABAPENTIN 100 MG CAP PO (09:00)
[2018-04-23] MEDS: DEXTROSE 5%-0.45% NACL 1,000 ML IV ×2 (10:30→23:30)
[2018-04-23] MEDS ORDERED: LIDOCAINE 1% (MDV) 20 ML INJ ×2 (17:38→21:37)
[2018-04-23] MEDS ORDERED: ETOMIDATE 20 MG INJ (17:38)
[2018-04-23] MEDS ORDERED: ROCURONIUM 50 MG INJ (17:38)
[2018-04-23] MEDS ORDERED: PHENYLephrine (100 MCG/ML) 5ML SYG ×4 (18:11→20:25)
[2018-04-23] MEDS ORDERED: metroNIDAZOLE 500 MG/NS (PMX) 100 ML IVPB (18:42)
[2018-04-23] MEDS ORDERED: CEFAZOLIN 1 GM INJ (18:42)
[2018-04-23] MEDS ORDERED: VASOPRESSIN 20 UNITS INJ (19:06)
[2018-04-23 20:16] LABS: IMMEDIATE SPIN CROSSMATCH 1 2
[2018-04-23] MEDS ORDERED: CA CHLORIDE 10% 10 ML SYRINGE (20:40)
[2018-04-23] MEDS ORDERED: ROPIVACAINE 0.5 % 30 ML VIAL (21:36)
[2018-04-23] MEDS ORDERED: ONDANSETRON 4 MG INJ (21:37)
[2018-04-23] MEDS ORDERED: FAMOTIDINE 20 MG INJ (21:38)
[2018-04-23] MEDS ORDERED: SUGAMMADEX SODIUM 200 MG/2 ML VIAL IV (21:49)
[2018-04-23] MEDS ORDERED: FENTAnyl 50 MCG/ML VIAL (22:09)
[2018-04-23 22:27] LABS: ADD MAN DIFF? NO
[2018-04-23 22:30] LABS: WHITE BLOOD COUNT 10.4 10^3/ul (4.8-10.8)
[2018-04-23 22:30] LABS: ABNORMAL IP MESSAGE 1; BASOPHIL # 0.1 10^3/ul (0.0-0.1); BASOPHILS % 0.6 % (0.0-2.0); EOSINOPHILS # 0.1 10^3/ul (0.0-0.5); EOSINOPHILS % 0.7 % (0.0-7.0); HEMATOCRIT 39.3 % (42.0-52.0); LYMPHOCYTES # 0.6 10^3/ul (0.8-2.9); LYMPHOCYTES % 5.3 % (15.0-51.0); MEAN CORPUSCULAR HEMOGLOBIN 30.1 pg (29.0-33.0); MEAN CORPUSCULAR HGB CONC 30.5 g/dl (32.0-37.0); MEAN CORPUSCULAR VOLUME 98.5 fl (82.0-101.0); MEAN PLATELET VOLUME 11.9 fl (7.4-10.4); MONOCYTES % 9.7 % (0.0-11.0); NEUTROPHIL # 8.7 10^3/ul (1.6-7.5); NEUTROPHILS % 83.2 % (39.0-77.0); PLATELET COUNT 128 10^3/UL (140-415); POSITIVE DIFF @See below; RED BLOOD COUNT 3.99 10^6/ul (4.70-6.10); RED CELL DISTRIBUTION WIDTH 17.2 % (11.5-14.5)
[2018-04-23] MEDS ORDERED: HYDROmorphONE 1 MG/ML SYG IV (22:30)
[2018-04-23 22:48] LABS: ANION GAP 11 (5-13); CARBON DIOXIDE 23 mmol/L (21-31); CHLORIDE 103 mmol/L (97-110); POTASSIUM 4.5 mmol/L (3.5-5.1); SODIUM 137 mmol/L (135-144)
[2018-04-23] MEDS ORDERED: hydrALAzine 20 MG INJ IV (23:00)
[2018-04-23] MEDS ORDERED: HYDROmorphONE 0.5 MG/0.5 ML SYG IV ×3 (23:00)
[2018-04-23] MEDS ORDERED: FENTAnyl 50 MCG/ML VIAL IV ×3 (23:00)
[2018-04-23] MEDS ORDERED: ONDANSETRON 4 MG INJ IV (23:00)
[2018-04-24] MEDS: INSULIN ASPART [NOVOLOG] 3 ML PEN SC ×5 (01:22→21:00)
[2018-04-24] MEDS: ACCU-CHEK XX (01:24)
[2018-04-24] MEDS: ACETAMINOPHEN 1000MG/100ML IV 100 ML IVPB ×2 (03:34→09:03)
[2018-04-24 05:19] LABS: ADD MAN DIFF? NO
[2018-04-24 05:29] LABS: WHITE BLOOD COUNT 11.9 10^3/ul (4.8-10.8)
[2018-04-24 05:29] LABS: ABNORMAL IP MESSAGE 1; BASOPHIL # 0.1 10^3/ul (0.0-0.1); BASOPHILS % 0.4 % (0.0-2.0); EOSINOPHILS % 0.3 % (0.0-7.0); HEMATOCRIT 38.6 % (42.0-52.0); HEMOGLOBIN 11.9 g/dl (14.0-18.0); LYMPHOCYTES # 0.4 10^3/ul (0.8-2.9); LYMPHOCYTES % 3.6 % (15.0-51.0); MEAN CORPUSCULAR HGB CONC 30.8 g/dl (32.0-37.0); MEAN CORPUSCULAR VOLUME 97.2 fl (82.0-101.0); MEAN PLATELET VOLUME 12.1 fl (7.4-10.4); MONOCYTE # 0.8 10^3/ul (0.3-0.9); MONOCYTES % 6.5 % (0.0-11.0); NEUTROPHIL # 10.5 10^3/ul (1.6-7.5); NEUTROPHILS % 88.4 % (39.0-77.0); PLATELET COUNT 131 10^3/UL (140-415); POSITIVE DIFF @See below; RED BLOOD COUNT 3.97 10^6/ul (4.70-6.10); RED CELL DISTRIBUTION WIDTH 17.6 % (11.5-14.5)
[2018-04-24] MEDS: metroNIDAZOLE 500 MG/NS (PMX) 100 ML IVPB (05:53)
[2018-04-24 05:56] LABS: ANION GAP 10 (5-13); BLOOD UREA NITROGEN 26 mg/dl (7-20); CALCIUM 7.8 mg/dl (8.4-10.2); CARBON DIOXIDE 20 mmol/L (21-31); CHLORIDE 106 mmol/L (97-110); CREATININE 4.18 mg/dl (0.61-1.24); GLUCOSE 277 mg/dl (70-220); MAGNESIUM 1.6 mg/dl (1.7-2.5); PHOSPHORUS 4.7 mg/dl (2.5-4.9); SODIUM 136 mmol/L (135-144)
[2018-04-24] MEDS: CEFAZOLIN 1 GM/50 ML (PMX) 50 ML IVPB (06:35)
[2018-04-24] MEDS: SEVELAMER CARBONATE 0.8 GM PKT PO ×3 (08:00→17:05)
[2018-04-24] MEDS: INSULIN GLARGINE [LANTus] (100 UNITS/ML) SYG SC (08:33)
[2018-04-24] MEDS: CHOLECALCIFEROL 1,000 UNIT TAB PO (09:00)
[2018-04-24] MEDS: GABAPENTIN 100 MG CAP PO (09:00)
[2018-04-24] MEDS: FOLIC ACID 1 MG TAB PO (09:00)
[2018-04-24] MEDS: morphine 2 MG INJ IV (10:16)
[2018-04-24] MEDS: MAGNESIUM SULFATE 1 GM/D5W 100 ML IVPB (15:58)
[2018-04-24] MEDS: NORepinephrine 8MG/250 ML (PMX 250 ML IV (16:11)
[2018-04-24] MEDS: DEXTROSE 5%-0.45% NACL 1,000 ML IV (16:16)
[2018-04-25] MEDS: ACCU-CHEK XX (04:45)
[2018-04-25 05:30] LABS: ALANINE AMINOTRANSFERASE 19 IU/L (13-69); ALBUMIN 2.1 g/dl (3.3-4.9); ALKALINE PHOSPHATASE 96 IU/L (42-121); ANION GAP 10 (5-13); ASPARTATE AMINO TRANSFERASE 10 IU/L (15-46); BLOOD UREA NITROGEN 34 mg/dl (7-20); CARBON DIOXIDE 24 mmol/L (21-31); CHLORIDE 103 mmol/L (97-110); CREATININE 5.42 mg/dl (0.61-1.24); GLUCOSE 137 mg/dl (70-220); POTASSIUM 4.9 mmol/L (3.5-5.1); SODIUM 137 mmol/L (135-144); TOTAL PROTEIN 4.7 g/dl (6.1-8.1)
[2018-04-25] MEDS: morphine 2 MG INJ IV ×2 (05:33→11:29)
[2018-04-25] MEDS: SEVELAMER CARBONATE 0.8 GM PKT PO ×3 (07:05→17:05)
[2018-04-25 07:46] LABS: ADD MAN DIFF? NO
[2018-04-25 07:49] LABS: ABNORMAL IP MESSAGE 1; BASOPHIL # 0.1 10^3/ul (0.0-0.1); BASOPHILS % 0.4 % (0.0-2.0); EOSINOPHILS # 0.2 10^3/ul (0.0-0.5); EOSINOPHILS % 1.1 % (0.0-7.0); HEMATOCRIT 35.5 % (42.0-52.0); HEMOGLOBIN 11.2 g/dl (14.0-18.0); LYMPHOCYTES # 0.5 10^3/ul (0.8-2.9); LYMPHOCYTES % 3.4 % (15.0-51.0); MEAN CORPUSCULAR HEMOGLOBIN 30.9 pg (29.0-33.0); MEAN CORPUSCULAR HGB CONC 31.5 g/dl (32.0-37.0); MEAN CORPUSCULAR VOLUME 98.1 fl (82.0-101.0); MEAN PLATELET VOLUME 11.7 fl (7.4-10.4); MONOCYTE # 1.2 10^3/ul (0.3-0.9); MONOCYTES % 7.6 % (0.0-11.0); NEUTROPHIL # 13.6 10^3/ul (1.6-7.5); NEUTROPHILS % 86.9 % (39.0-77.0); PLATELET COUNT 128 10^3/UL (140-415); POSITIVE DIFF @See below; RED BLOOD COUNT 3.62 10^6/ul (4.70-6.10); RED CELL DISTRIBUTION WIDTH 17.2 % (11.5-14.5)
[2018-04-25 07:49] LABS: WHITE BLOOD COUNT 15.7 10^3/ul (4.8-10.8)
[2018-04-25] MEDS: INSULIN ASPART [NOVOLOG] 3 ML PEN SC ×4 (09:01→20:57)
[2018-04-25] MEDS: CHOLECALCIFEROL 1,000 UNIT TAB PO (09:29)
[2018-04-25] MEDS: FOLIC ACID 1 MG TAB PO (09:29)
[2018-04-25] MEDS: INSULIN GLARGINE [LANTus] (100 UNITS/ML) SYG SC (09:32)
[2018-04-25] MEDS: PIPER-TAZO 2.25 GM/NS 50 ML IVPB ×3 (09:36→20:57)
[2018-04-25] MEDS ORDERED: PIPER-TAZO 3.375 GM IV (PMX) 100 ML IVPB (12:00)
[2018-04-25] MEDS: FAMOTIDINE 20 MG INJ IV (14:44)
[2018-04-25] MEDS ORDERED: MIDAZOLAM 1 MG/ML 2 ML INJ (15:42)
[2018-04-25] MEDS ORDERED: HEPARIN 1000 UNITS/ML 10 ML INJ ×2 (15:42→16:32)
[2018-04-25] MEDS ORDERED: FENTAnyl 50 MCG/ML VIAL (15:42)
[2018-04-25] MEDS ORDERED: LIDOCAINE 1% (MDV) 20 ML INJ (15:42)
[2018-04-25] MEDS ORDERED: HEPARIN 1000 UNITS/NS (A-LINE) 1,000 ML (15:42)
[2018-04-25] MEDS ORDERED: SOD CHLORIDE 0.9% 500 ML (16:32)
[2018-04-25] MEDS: DEXTROSE 5%-0.45% NACL 1,000 ML IV (17:50)
[2018-04-25] MEDS: DEXTROSE 50% 50 ML SYRINGE IV (20:56)
[2018-04-25] MEDS: ALBUMIN HUMAN 25% 100 ML IV (21:08)
[2018-04-26] MEDS: HEPARIN 1000 UNITS/ML 10 ML INJ CATHETER (00:19)
[2018-04-26] MEDS: ACCU-CHEK XX (02:21)
[2018-04-26] MEDS: morphine 2 MG INJ IV (02:46)
[2018-04-26 04:59] LABS: ADD MAN DIFF? NO
[2018-04-26 05:13] LABS: ABNORMAL IP MESSAGE 1; BASOPHILS % 0.3 % (0.0-2.0); EOSINOPHILS # 0.6 10^3/ul (0.0-0.5); EOSINOPHILS % 3.8 % (0.0-7.0); HEMOGLOBIN 9.6 g/dl (14.0-18.0); LYMPHOCYTES # 0.5 10^3/ul (0.8-2.9); LYMPHOCYTES % 3.4 % (15.0-51.0); MEAN CORPUSCULAR HEMOGLOBIN 30.7 pg (29.0-33.0); MEAN CORPUSCULAR VOLUME 95.8 fl (82.0-101.0); MEAN PLATELET VOLUME 11.7 fl (7.4-10.4); MONOCYTE # 0.9 10^3/ul (0.3-0.9); MONOCYTES % 6.2 % (0.0-11.0); NEUTROPHIL # 12.5 10^3/ul (1.6-7.5); NEUTROPHILS % 85.5 % (39.0-77.0); PLATELET COUNT 103 10^3/UL (140-415); POSITIVE DIFF @See below; RED BLOOD COUNT 3.13 10^6/ul (4.70-6.10); RED CELL DISTRIBUTION WIDTH 16.4 % (11.5-14.5)
[2018-04-26 05:13] LABS: WHITE BLOOD COUNT 14.6 10^3/ul (4.8-10.8)
[2018-04-26 05:44] LABS: ANION GAP 10 (5-13); BLOOD UREA NITROGEN 23 mg/dl (7-20); CALCIUM 8.3 mg/dl (8.4-10.2); CARBON DIOXIDE 26 mmol/L (21-31); CHLORIDE 102 mmol/L (97-110); CREATININE 4.14 mg/dl (0.61-1.24); GLUCOSE 91 mg/dl (70-220); PHOSPHORUS 3.6 mg/dl (2.5-4.9); POTASSIUM 4.1 mmol/L (3.5-5.1); SODIUM 138 mmol/L (135-144)
[2018-04-26] MEDS: PIPER-TAZO 2.25 GM/NS 50 ML IVPB ×3 (06:03→21:11)
[2018-04-26] MEDS: INSULIN ASPART [NOVOLOG] 3 ML PEN SC ×4 (07:35→21:11)
[2018-04-26] MEDS: INSULIN GLARGINE [LANTus] (100 UNITS/ML) SYG SC (08:00)
[2018-04-26] MEDS: FOLIC ACID 1 MG TAB PO (08:42)
[2018-04-26] MEDS: CHOLECALCIFEROL 1,000 UNIT TAB PO (08:42)
[2018-04-26] MEDS: SEVELAMER CARBONATE 0.8 GM PKT PO ×3 (08:42→18:04)
[2018-04-26] MEDS: FAMOTIDINE 20 MG INJ IV (08:42)
[2018-04-26] MEDS: DEXTROSE 50% 50 ML SYRINGE IV (11:40)
[2018-04-26 18:44] LABS: HEMATOCRIT 32.5 % (42.0-52.0); HEMOGLOBIN 10.1 g/dl (14.0-18.0)
[2018-04-26] MEDS: DEXTROSE 5%-0.45% NACL 1,000 ML IV (19:10)
[2018-04-26] MEDS ORDERED: HEPARIN 5,000 UNIT/1 ML VIAL SC (21:00)
[2018-04-27] MEDS: ACCU-CHEK XX (02:00)
[2018-04-27 05:20] LABS: ADD MAN DIFF? NO
[2018-04-27 05:27] LABS: ABNORMAL IP MESSAGE 1; BASOPHILS % 0.3 % (0.0-2.0); EOSINOPHILS # 0.6 10^3/ul (0.0-0.5); EOSINOPHILS % 3.6 % (0.0-7.0); HEMATOCRIT 30.3 % (42.0-52.0); HEMOGLOBIN 9.6 g/dl (14.0-18.0); LYMPHOCYTES # 0.5 10^3/ul (0.8-2.9); LYMPHOCYTES % 3.5 % (15.0-51.0); MEAN CORPUSCULAR HEMOGLOBIN 30.4 pg (29.0-33.0); MEAN CORPUSCULAR HGB CONC 31.7 g/dl (32.0-37.0); MEAN CORPUSCULAR VOLUME 95.9 fl (82.0-101.0); MEAN PLATELET VOLUME 12.3 fl (7.4-10.4); MONOCYTE # 0.8 10^3/ul (0.3-0.9); MONOCYTES % 5.6 % (0.0-11.0); NEUTROPHIL # 13.1 10^3/ul (1.6-7.5); NEUTROPHILS % 86.3 % (39.0-77.0); PLATELET COUNT 104 10^3/UL (140-415); POSITIVE DIFF @See below; RED BLOOD COUNT 3.16 10^6/ul (4.70-6.10); RED CELL DISTRIBUTION WIDTH 16.1 % (11.5-14.5)
[2018-04-27 05:27] LABS: WHITE BLOOD COUNT 15.1 10^3/ul (4.8-10.8)
[2018-04-27] MEDS: ACETAMINOPHEN 325 MG TAB PO (05:59)
[2018-04-27] MEDS: PIPER-TAZO 2.25 GM/NS 50 ML IVPB ×3 (05:59→21:15)
[2018-04-27] MEDS: SEVELAMER CARBONATE 0.8 GM PKT PO ×3 (06:02→17:31)
[2018-04-27 06:19] LABS: ALANINE AMINOTRANSFERASE 16 IU/L (13-69); ALBUMIN 2.2 g/dl (3.3-4.9); ALBUMIN/GLOBULIN RATIO 0.78; ALKALINE PHOSPHATASE 104 IU/L (42-121); ANION GAP 9 (5-13); ASPARTATE AMINO TRANSFERASE < 8 IU/L (15-46); BLOOD UREA NITROGEN 30 mg/dl (7-20); CALCIUM 8.3 mg/dl (8.4-10.2); CARBON DIOXIDE 26 mmol/L (21-31); CHLORIDE 100 mmol/L (97-110); CREATININE 5.14 mg/dl (0.61-1.24); GLUCOSE 175 mg/dl (70-220); POTASSIUM 4.3 mmol/L (3.5-5.1); SODIUM 135 mmol/L (135-144)
[2018-04-27] MEDS: FAMOTIDINE 20 MG INJ IV (08:48)
[2018-04-27] MEDS: FOLIC ACID 1 MG TAB PO (08:48)
[2018-04-27] MEDS: CHOLECALCIFEROL 1,000 UNIT TAB PO (08:48)
[2018-04-27] MEDS: INSULIN ASPART [NOVOLOG] 3 ML PEN SC ×4 (08:57→20:43)
[2018-04-27] MEDS: INSULIN GLARGINE [LANTus] (100 UNITS/ML) SYG SC (09:11)
[2018-04-28] MEDS: ACCU-CHEK XX (02:00)
[2018-04-28] MEDS: DEXTROSE 50% 50 ML SYRINGE IV (02:02)
[2018-04-28 05:20] LABS: ADD MAN DIFF? NO
[2018-04-28 05:33] LABS: ABNORMAL IP MESSAGE 1; BASOPHIL # 0.1 10^3/ul (0.0-0.1); BASOPHILS % 0.3 % (0.0-2.0); EOSINOPHILS # 0.7 10^3/ul (0.0-0.5); EOSINOPHILS % 4.8 % (0.0-7.0); HEMATOCRIT 31.9 % (42.0-52.0); HEMOGLOBIN 10.1 g/dl (14.0-18.0); LYMPHOCYTES # 0.6 10^3/ul (0.8-2.9); LYMPHOCYTES % 3.7 % (15.0-51.0); MEAN CORPUSCULAR HEMOGLOBIN 30.6 pg (29.0-33.0); MEAN CORPUSCULAR HGB CONC 31.7 g/dl (32.0-37.0); MEAN CORPUSCULAR VOLUME 96.7 fl (82.0-101.0); MEAN PLATELET VOLUME 12.3 fl (7.4-10.4); MONOCYTE # 0.9 10^3/ul (0.3-0.9); NEUTROPHIL # 12.8 10^3/ul (1.6-7.5); NEUTROPHILS % 84.4 % (39.0-77.0); PLATELET COUNT 93 10^3/UL (140-415); POSITIVE DIFF @See below; RED CELL DISTRIBUTION WIDTH 15.9 % (11.5-14.5)
[2018-04-28 05:33] LABS: WHITE BLOOD COUNT 15.2 10^3/ul (4.8-10.8)
[2018-04-28 05:55] LABS: ANION GAP 8 (5-13); BLOOD UREA NITROGEN 39 mg/dl (7-20); CALCIUM 8.5 mg/dl (8.4-10.2); CARBON DIOXIDE 26 mmol/L (21-31); CHLORIDE 102 mmol/L (97-110); CREATININE 5.82 mg/dl (0.61-1.24); GLUCOSE 88 mg/dl (70-220); MAGNESIUM 2.1 mg/dl (1.7-2.5); POTASSIUM 4.3 mmol/L (3.5-5.1); SODIUM 136 mmol/L (135-144)
[2018-04-28] MEDS: SEVELAMER CARBONATE 0.8 GM PKT PO ×3 (06:08→17:25)
[2018-04-28] MEDS: PIPER-TAZO 2.25 GM/NS 50 ML IVPB (06:08)
[2018-04-28] MEDS: INSULIN ASPART [NOVOLOG] 3 ML PEN SC ×4 (07:35→22:00)
[2018-04-28] MEDS: INSULIN GLARGINE [LANTus] (100 UNITS/ML) SYG SC (08:36)
[2018-04-28] MEDS: HEPARIN 1000 UNITS/ML 10 ML INJ CATHETER (12:16)
[2018-04-28] MEDS: MIDODRINE 5 MG TAB PO (12:22)
[2018-04-28] MEDS: FAMOTIDINE 20 MG INJ IV (12:22)
[2018-04-28] MEDS: FOLIC ACID 1 MG TAB PO (12:22)
[2018-04-28] MEDS: CHOLECALCIFEROL 1,000 UNIT TAB PO (12:24)
[2018-04-28] MEDS: ONDANSETRON 4 MG INJ IV (12:55)
[2018-04-28] MEDS: KETOROLAC 15 MG INJ IV (14:00)
[2018-04-28] MEDS: BALSAM PERU/CASTOR OIL 60 GM TUBE TOP (22:09)
[2018-04-29] MEDS: ACCU-CHEK XX (02:00)
[2018-04-29] MEDS: LEVOTHYROXINE 50 MCG TAB PO (06:11)
[2018-04-29 08:08] LABS: ADD MAN DIFF? NO
[2018-04-29 08:14] LABS: WHITE BLOOD COUNT 12.7 10^3/ul (4.8-10.8)
[2018-04-29 08:14] LABS: ABNORMAL IP MESSAGE 1; BASOPHILS % 0.3 % (0.0-2.0); EOSINOPHILS # 0.9 10^3/ul (0.0-0.5); EOSINOPHILS % 7.2 % (0.0-7.0); HEMOGLOBIN 9.6 g/dl (14.0-18.0); LYMPHOCYTES # 0.6 10^3/ul (0.8-2.9); MEAN CORPUSCULAR HEMOGLOBIN 29.8 pg (29.0-33.0); MEAN CORPUSCULAR VOLUME 99.4 fl (82.0-101.0); MEAN PLATELET VOLUME 12.3 fl (7.4-10.4); MONOCYTE # 0.8 10^3/ul (0.3-0.9); MONOCYTES % 6.5 % (0.0-11.0); NEUTROPHIL # 10.2 10^3/ul (1.6-7.5); NEUTROPHILS % 80.4 % (39.0-77.0); PLATELET COUNT 78 10^3/UL (140-415); POSITIVE DIFF @See below; RED BLOOD COUNT 3.22 10^6/ul (4.70-6.10); RED CELL DISTRIBUTION WIDTH 15.9 % (11.5-14.5)
[2018-04-29] MEDS: SEVELAMER CARBONATE 0.8 GM PKT PO ×3 (08:58→17:43)
[2018-04-29] MEDS: BALSAM PERU/CASTOR OIL 60 GM TUBE TOP ×2 (08:59→21:02)
[2018-04-29] MEDS: CHOLECALCIFEROL 1,000 UNIT TAB PO (08:59)
[2018-04-29] MEDS: FOLIC ACID 1 MG TAB PO (09:00)
[2018-04-29] MEDS ORDERED: morphine 2 MG INJ IV (09:00)
[2018-04-29] MEDS: DOCUSATE SODIUM 100 MG CAP PO (09:00)
[2018-04-29] MEDS: FAMOTIDINE 20 MG INJ IV (09:01)
[2018-04-29] MEDS: INSULIN ASPART [NOVOLOG] 3 ML PEN SC ×4 (09:03→20:57)
[2018-04-29] MEDS: INSULIN GLARGINE [LANTus] (100 UNITS/ML) SYG SC (09:03)
[2018-04-29] MEDS: HYDROCODONE/APAP (5/325) TAB GTB (09:07)
[2018-04-29] MEDS ORDERED: morphine LIQ (10 MG/5 ML) CUP PO (23:45)
[2018-04-30] MEDS: ACCU-CHEK XX (02:00)
[2018-04-30 05:04] LABS: ADD MAN DIFF? NO
[2018-04-30 05:10] LABS: WHITE BLOOD COUNT 14.4 10^3/ul (4.8-10.8)
[2018-04-30 05:10] LABS: BASOPHILS % 0.3 % (0.0-2.0); EOSINOPHILS # 0.7 10^3/ul (0.0-0.5); EOSINOPHILS % 5.1 % (0.0-7.0); HEMATOCRIT 33.8 % (42.0-52.0); HEMOGLOBIN 10.4 g/dl (14.0-18.0); LYMPHOCYTES # 0.6 10^3/ul (0.8-2.9); LYMPHOCYTES % 4.2 % (15.0-51.0); MEAN CORPUSCULAR HEMOGLOBIN 29.7 pg (29.0-33.0); MEAN CORPUSCULAR HGB CONC 30.8 g/dl (32.0-37.0); MEAN CORPUSCULAR VOLUME 96.6 fl (82.0-101.0); MEAN PLATELET VOLUME 12.7 fl (7.4-10.4); MONOCYTE # 0.8 10^3/ul (0.3-0.9); MONOCYTES % 5.3 % (0.0-11.0); NEUTROPHIL # 12.2 10^3/ul (1.6-7.5); NEUTROPHILS % 84.5 % (39.0-77.0); PLATELET COUNT 102 10^3/UL (140-415); RED CELL DISTRIBUTION WIDTH 16.2 % (11.5-14.5)
[2018-04-30 05:34] LABS: ALBUMIN 2.2 g/dl (3.3-4.9); ANION GAP 9 (5-13); BLOOD UREA NITROGEN 34 mg/dl (7-20); CALCIUM 8.4 mg/dl (8.4-10.2); CARBON DIOXIDE 25 mmol/L (21-31); CHLORIDE 103 mmol/L (97-110); CREATININE 4.87 mg/dl (0.61-1.24); GLUCOSE 173 mg/dl (70-220); PHOSPHORUS 4.1 mg/dl (2.5-4.9); POTASSIUM 4.8 mmol/L (3.5-5.1); SODIUM 137 mmol/L (135-144)
[2018-04-30 05:41] LABS: ANION GAP 8 (5-13); BLOOD UREA NITROGEN 35 mg/dl (7-20); CALCIUM 8.5 mg/dl (8.4-10.2); CARBON DIOXIDE 24 mmol/L (21-31); CHLORIDE 103 mmol/L (97-110); CREATININE 5.16 mg/dl (0.61-1.24); GLUCOSE 178 mg/dl (70-220); POTASSIUM 4.7 mmol/L (3.5-5.1); SODIUM 135 mmol/L (135-144)
[2018-04-30] MEDS: LEVOTHYROXINE 50 MCG TAB PO (06:25)
[2018-04-30] MEDS: MIDODRINE 5 MG TAB PO (07:02)
[2018-04-30] MEDS: ALBUMIN HUMAN 25% 100 ML IV (09:30)
[2018-04-30] MEDS: HEPARIN 1000 UNITS/ML 10 ML INJ CATHETER (10:19)
[2018-04-30] MEDS: INSULIN ASPART [NOVOLOG] 3 ML PEN SC ×4 (11:18→22:32)
[2018-04-30] MEDS: INSULIN GLARGINE [LANTus] (100 UNITS/ML) SYG SC (11:19)
[2018-04-30] MEDS: BALSAM PERU/CASTOR OIL 60 GM TUBE TOP ×2 (11:20→22:27)
[2018-04-30] MEDS: APIXABAN 5 MG TABLET PO ×2 (11:20→20:11)
[2018-04-30] MEDS: DOCUSATE SODIUM 100 MG CAP PO (11:21)
[2018-04-30] MEDS: SEVELAMER CARBONATE 0.8 GM PKT PO ×3 (11:21→17:50)
[2018-04-30] MEDS: FAMOTIDINE 20 MG TAB PO (11:21)
[2018-04-30] MEDS: FOLIC ACID 1 MG TAB PO (11:21)
[2018-04-30] MEDS: CHOLECALCIFEROL 1,000 UNIT TAB PO (11:21)
[2018-04-30] MEDS: KETOROLAC 15 MG INJ IV (15:04)
[2018-04-30] MEDS: HYDROCODONE/APAP (5/325) TAB GTB (22:26)
[2018-05-01] MEDS: KETOROLAC 15 MG INJ IV ×2 (00:34→07:01)
[2018-05-01] MEDS: ACCU-CHEK XX (02:08)
[2018-05-01] MEDS: INSULIN ASPART [NOVOLOG] 3 ML PEN SC ×5 (02:12→20:33)
[2018-05-01 05:30] LABS: ADD MAN DIFF? NO
[2018-05-01 05:37] LABS: ABNORMAL IP MESSAGE 1; BASOPHILS % 0.2 % (0.0-2.0); EOSINOPHILS # 0.3 10^3/ul (0.0-0.5); HEMOGLOBIN 9.7 g/dl (14.0-18.0); LYMPHOCYTES # 0.4 10^3/ul (0.8-2.9); LYMPHOCYTES % 3.4 % (15.0-51.0); MEAN CORPUSCULAR HEMOGLOBIN 29.9 pg (29.0-33.0); MEAN CORPUSCULAR HGB CONC 31.3 g/dl (32.0-37.0); MEAN CORPUSCULAR VOLUME 95.7 fl (82.0-101.0); MEAN PLATELET VOLUME 12.2 fl (7.4-10.4); MONOCYTE # 0.6 10^3/ul (0.3-0.9); MONOCYTES % 4.8 % (0.0-11.0); NEUTROPHIL # 11.4 10^3/ul (1.6-7.5); NEUTROPHILS % 89.1 % (39.0-77.0); PLATELET COUNT 98 10^3/UL (140-415); POSITIVE DIFF @See below; RED BLOOD COUNT 3.24 10^6/ul (4.70-6.10); RED CELL DISTRIBUTION WIDTH 15.9 % (11.5-14.5)
[2018-05-01 05:37] LABS: WHITE BLOOD COUNT 12.8 10^3/ul (4.8-10.8)
[2018-05-01] MEDS: LEVOTHYROXINE 50 MCG TAB PO (05:42)
[2018-05-01 06:08] LABS: ALBUMIN 2.4 g/dl (3.3-4.9); ANION GAP 9 (5-13); BLOOD UREA NITROGEN 26 mg/dl (7-20); CALCIUM 8.3 mg/dl (8.4-10.2); CARBON DIOXIDE 25 mmol/L (21-31); CHLORIDE 100 mmol/L (97-110); CREATININE 4.12 mg/dl (0.61-1.24); GLUCOSE 249 mg/dl (70-220); MAGNESIUM 1.9 mg/dl (1.7-2.5); POTASSIUM 4.1 mmol/L (3.5-5.1); SODIUM 134 mmol/L (135-144)
[2018-05-01] MEDS: morphine 2 MG INJ IV (07:56)
[2018-05-01] MEDS: DOCUSATE SODIUM 100 MG CAP PO (08:46)
[2018-05-01] MEDS: FOLIC ACID 1 MG TAB PO (08:46)
[2018-05-01] MEDS: CHOLECALCIFEROL 1,000 UNIT TAB PO (08:46)
[2018-05-01] MEDS: FAMOTIDINE 20 MG TAB PO (08:46)
[2018-05-01] MEDS: APIXABAN 5 MG TABLET PO ×2 (08:46→20:31)
[2018-05-01] MEDS: BALSAM PERU/CASTOR OIL 60 GM TUBE TOP ×2 (08:47→21:17)
[2018-05-01] MEDS: BISACODYL 10 MG SUPP PR (08:47)
[2018-05-01] MEDS: INSULIN GLARGINE [LANTus] (100 UNITS/ML) SYG SC (08:50)
[2018-05-01] MEDS: SEVELAMER CARBONATE 0.8 GM PKT PO ×3 (08:50→18:04)
[2018-05-01] MEDS: HYDROCODONE/APAP (5/325) TAB GTB (22:58)
[2018-05-02] MEDS: ACCU-CHEK XX ×2 (02:00→21:00)
[2018-05-02 05:59] LABS: WHITE BLOOD COUNT 14.7 10^3/ul (4.8-10.8)
[2018-05-02 05:59] LABS: ABNORMAL IP MESSAGE 1; HEMATOCRIT 31.1 % (42.0-52.0); HEMOGLOBIN 9.6 g/dl (14.0-18.0); MEAN CORPUSCULAR HEMOGLOBIN 29.7 pg (29.0-33.0); MEAN CORPUSCULAR HGB CONC 30.9 g/dl (32.0-37.0); MEAN CORPUSCULAR VOLUME 96.3 fl (82.0-101.0); MEAN PLATELET VOLUME 12.5 fl (7.4-10.4); PLATELET COUNT 105 10^3/UL (140-415); POSITIVE DIFF @See below; RED BLOOD COUNT 3.23 10^6/ul (4.70-6.10); RED CELL DISTRIBUTION WIDTH 15.9 % (11.5-14.5)
[2018-05-02] MEDS: LEVOTHYROXINE 50 MCG TAB PO (06:00)
[2018-05-02 06:02] LABS: ADD MAN DIFF? YES
[2018-05-02 06:39] LABS: ANION GAP 11 (5-13); BLOOD UREA NITROGEN 36 mg/dl (7-20); CALCIUM 8.7 mg/dl (8.4-10.2); CARBON DIOXIDE 25 mmol/L (21-31); CHLORIDE 100 mmol/L (97-110); CREATININE 5.09 mg/dl (0.61-1.24); GLUCOSE 203 mg/dl (70-220); POTASSIUM 5.3 mmol/L (3.5-5.1); SODIUM 136 mmol/L (135-144)
[2018-05-02 06:44] LABS: ANION GAP 12 (5-13); BLOOD UREA NITROGEN 36 mg/dl (7-20); CALCIUM 8.5 mg/dl (8.4-10.2); CARBON DIOXIDE 24 mmol/L (21-31); CHLORIDE 101 mmol/L (97-110); CREATININE 4.76 mg/dl (0.61-1.24); GLUCOSE 197 mg/dl (70-220); PHOSPHORUS 3.9 mg/dl (2.5-4.9); POTASSIUM 5.4 mmol/L (3.5-5.1); SODIUM 137 mmol/L (135-144)
[2018-05-02 06:59] LABS: ANISOCYTOSIS 2+ (0-0); BAND NEUTROPHILS #M 7.6 10^3/ul (0.0-0.6); BAND NEUTROPHILS % (M) 52 % (0-4); BURR CELLS 1+ (0-0); EOSINOPHILS % (M) 1 % (0-7); GIANT THROMBO% (M) 1 % (0-0); LYMPHOCYTES #M 0.8 10^3/ul (0.8-2.9); LYMPHOCYTES % (M) 6 % (15-51); MONOCYTE #M 0.8 10^3/ul (0.3-0.9); MONOCYTES % (M) 6 % (0-11); PLATELET ESTIMATE DECREASED; POIKILOCYTOSIS 2+ (0-0); POLYCHROMASIA 1+ (0-0); SEG NEUT #M 6.3 10^3/ul (1.6-7.5); SEGMENTED NEUTROPHILS (M) % 35 % (39-77); SMUDGE%M 41 % (0-0); TOXIC GRANULATION 1+ (0-0)
[2018-05-02] MEDS: SEVELAMER CARBONATE 0.8 GM PKT PO ×3 (08:30→17:25)
[2018-05-02] MEDS: FOLIC ACID 1 MG TAB PO (08:40)
[2018-05-02] MEDS: CHOLECALCIFEROL 1,000 UNIT TAB PO (08:40)
[2018-05-02] MEDS: FAMOTIDINE 20 MG TAB PO (08:40)
[2018-05-02] MEDS: DOCUSATE SODIUM 100 MG CAP PO (08:41)
[2018-05-02] MEDS: APIXABAN 5 MG TABLET PO ×2 (08:41→20:09)
[2018-05-02] MEDS: BALSAM PERU/CASTOR OIL 60 GM TUBE TOP ×2 (08:49→20:13)
[2018-05-02] MEDS: INSULIN ASPART [NOVOLOG] 3 ML PEN SC ×4 (09:00→21:00)
[2018-05-02] MEDS: INSULIN GLARGINE [LANTus] (100 UNITS/ML) SYG SC (09:02)
[2018-05-02] MEDS: MIDODRINE 5 MG TAB PO (09:33)
[2018-05-02] MEDS: ALBUMIN HUMAN 25% 100 ML IV (10:29)
[2018-05-02] MEDS: HEPARIN 1000 UNITS/ML 10 ML INJ CATHETER (13:53)
[2018-05-02] MEDS ORDERED: TPN 1,000 ML IV (17:21)
[2018-05-03] MEDS: ACCU-CHEK XX ×7 (01:00→21:00)
[2018-05-03] MEDS ORDERED: INSULIN ASPART [NOVOLOG] 3 ML PEN SC (01:00)
[2018-05-03] MEDS: Insulin NOVOLOG SS MILD Algorithm (NPO/TPN/ENTERAL FEEDS) SC ×6 (01:00→22:37)
[2018-05-03] MEDS: HYDROCODONE/APAP (5/325) TAB GTB (03:29)
[2018-05-03 05:47] LABS: ANION GAP 10 (5-13); BLOOD UREA NITROGEN 31 mg/dl (7-20); CALCIUM 8.5 mg/dl (8.4-10.2); CARBON DIOXIDE 27 mmol/L (21-31); CHLORIDE 101 mmol/L (97-110); CREATININE 3.64 mg/dl (0.61-1.24); GLUCOSE 129 mg/dl (70-220); PHOSPHORUS 3.5 mg/dl (2.5-4.9); POTASSIUM 4.8 mmol/L (3.5-5.1); SODIUM 138 mmol/L (135-144); TRIGLYCERIDES 53 mg/dl (0-149)
[2018-05-03] MEDS: LEVOTHYROXINE 50 MCG TAB PO (05:47)
[2018-05-03 05:49] LABS: AMMONIA 27 umol/l (9-30)
[2018-05-03 06:23] LABS: PREALBUMIN < 3.0 mg/dl (17.6-36.0)
[2018-05-03] MEDS: FOLIC ACID 1 MG TAB PO (08:58)
[2018-05-03] MEDS: FAMOTIDINE 20 MG TAB PO (08:58)
[2018-05-03] MEDS: SEVELAMER CARBONATE 0.8 GM PKT PO ×3 (08:58→17:45)
[2018-05-03] MEDS: APIXABAN 5 MG TABLET PO ×2 (08:59→21:49)
[2018-05-03] MEDS: CHOLECALCIFEROL 1,000 UNIT TAB PO (08:59)
[2018-05-03] MEDS: BALSAM PERU/CASTOR OIL 60 GM TUBE TOP ×2 (09:00→21:50)
[2018-05-03] MEDS: DOCUSATE SODIUM 100 MG CAP PO (09:00)
[2018-05-03] MEDS: INSULIN GLARGINE [LANTus] (100 UNITS/ML) SYG SC (09:02)
[2018-05-03] MEDS: PIPER-TAZO 3.375 GM IV (PMX) 100 ML IVPB ×2 (14:08→21:51)
[2018-05-03] MEDS: FAT EMULSION 20% 250 ML IV (14:14)
[2018-05-03] MEDS: TPN 1,000 ML IV (17:31)
[2018-05-04] MEDS: ACCU-CHEK XX ×7 (03:00→21:00)
[2018-05-04] MEDS: Insulin NOVOLOG SS MILD Algorithm (NPO/TPN/ENTERAL FEEDS) SC ×6 (03:00→21:44)
[2018-05-04 06:19] LABS: ABNORMAL IP MESSAGE 1; HEMATOCRIT 30.9 % (42.0-52.0); HEMOGLOBIN 9.5 g/dl (14.0-18.0); MEAN CORPUSCULAR HEMOGLOBIN 29.1 pg (29.0-33.0); MEAN CORPUSCULAR HGB CONC 30.7 g/dl (32.0-37.0); MEAN CORPUSCULAR VOLUME 94.5 fl (82.0-101.0); PLATELET COUNT 100 10^3/UL (140-415); POSITIVE DIFF @See below; RED BLOOD COUNT 3.27 10^6/ul (4.70-6.10)
[2018-05-04 06:19] LABS: WHITE BLOOD COUNT 7.2 10^3/ul (4.8-10.8)
[2018-05-04 06:21] LABS: ADD MAN DIFF? YES
[2018-05-04] MEDS: LEVOTHYROXINE 50 MCG TAB PO (06:40)
[2018-05-04] MEDS: PIPER-TAZO 3.375 GM IV (PMX) 100 ML IVPB ×3 (06:40→21:44)
[2018-05-04 07:01] LABS: ALBUMIN 2.2 g/dl (3.3-4.9); ANION GAP 12 (5-13); BLOOD UREA NITROGEN 49 mg/dl (7-20); CALCIUM 8.8 mg/dl (8.4-10.2); CARBON DIOXIDE 24 mmol/L (21-31); CHLORIDE 101 mmol/L (97-110); GLUCOSE 336 mg/dl (70-220); MAGNESIUM 2.2 mg/dl (1.7-2.5); PHOSPHORUS 3.8 mg/dl (2.5-4.9); SODIUM 137 mmol/L (135-144)
[2018-05-04 07:18] LABS: ANION GAP 14 (5-13); BLOOD UREA NITROGEN 49 mg/dl (7-20); CALCIUM 8.7 mg/dl (8.4-10.2); CARBON DIOXIDE 22 mmol/L (21-31); CHLORIDE 101 mmol/L (97-110); CREATININE 4.16 mg/dl (0.61-1.24); GLUCOSE 331 mg/dl (70-220); POTASSIUM 5.3 mmol/L (3.5-5.1); SODIUM 137 mmol/L (135-144)
[2018-05-04] MEDS: CHOLECALCIFEROL 1,000 UNIT TAB PO (08:30)
[2018-05-04] MEDS: FAMOTIDINE 20 MG TAB PO (08:30)
[2018-05-04] MEDS: SEVELAMER CARBONATE 0.8 GM PKT PO (08:30)
[2018-05-04] MEDS: FOLIC ACID 1 MG TAB PO (08:31)
[2018-05-04] MEDS: APIXABAN 5 MG TABLET PO ×2 (08:31→21:44)
[2018-05-04] MEDS: TPN 1,000 ML IV ×2 (08:32→23:34)
[2018-05-04] MEDS: FAT EMULSION 20% 250 ML IV (08:32)
[2018-05-04] MEDS: DOCUSATE SODIUM 100 MG CAP PO (08:32)
[2018-05-04] MEDS: HYDROCODONE/APAP (5/325) TAB GTB (08:32)
[2018-05-04] MEDS: INSULIN GLARGINE [LANTus] (100 UNITS/ML) SYG SC (08:35)
[2018-05-04] MEDS: BALSAM PERU/CASTOR OIL 60 GM TUBE TOP ×2 (08:36→21:45)
[2018-05-04 09:01] LABS: ANISOCYTOSIS 2+ (0-0); BAND NEUTROPHILS #M 2.8 10^3/ul (0.0-0.6); BAND NEUTROPHILS % (M) 40 % (0-4); EOSINOPHILS % (M) 2 % (0-7); ERYTHROBLAST% (NRBC) (M) 1 % (0-0); GIANT THROMBO% (M) 1 % (0-0); LYMPHOCYTES #M 0.2 10^3/ul (0.8-2.9); LYMPHOCYTES % (M) 3 % (15-51); METAMYELOCYTES %M 1 % (0-0); MONOCYTE #M 0.7 10^3/ul (0.3-0.9); MONOCYTES % (M) 11 % (0-11); MYELOCYTES % (M) 1 % (0-0); OVALOCYTES 1+ (0-0); PLASMAC%(M) 1 % (0); PLATELET ESTIMATE DECREASED; PLATELET MORPHOLOGY COMMENT @See below; POLYCHROMASIA 2+ (0-0); SEG NEUT #M 3.1 10^3/ul (1.6-7.5); SEGMENTED NEUTROPHILS (M) % 40 % (39-77); SMUDGE%M 3 % (0-0); TOXIC GRANULATION 2+ (0-0)
[2018-05-04] MEDS: KETOROLAC 15 MG INJ IV (13:34)
[2018-05-04] MEDS: NA POLYST SULFON 15 GM/60 ML BTL PO (17:55)
[2018-05-05] MEDS: ACCU-CHEK XX ×7 (01:00→21:00)
[2018-05-05] MEDS: Insulin NOVOLOG SS MILD Algorithm (NPO/TPN/ENTERAL FEEDS) SC ×6 (01:37→21:01)
[2018-05-05 05:49] LABS: ABNORMAL IP MESSAGE 1; HEMATOCRIT 27.8 % (42.0-52.0); HEMOGLOBIN 8.7 g/dl (14.0-18.0); MEAN CORPUSCULAR HEMOGLOBIN 29.5 pg (29.0-33.0); MEAN CORPUSCULAR HGB CONC 31.3 g/dl (32.0-37.0); MEAN CORPUSCULAR VOLUME 94.2 fl (82.0-101.0); MEAN PLATELET VOLUME 14.1 fl (7.4-10.4); PLATELET COUNT 68 10^3/UL (140-415); POSITIVE DIFF @See below; RED BLOOD COUNT 2.95 10^6/ul (4.70-6.10)
[2018-05-05 05:49] LABS: WHITE BLOOD COUNT 10.1 10^3/ul (4.8-10.8)
[2018-05-05] MEDS: PIPER-TAZO 3.375 GM IV (PMX) 100 ML IVPB ×3 (05:58→23:26)
[2018-05-05] MEDS: LEVOTHYROXINE 50 MCG TAB PO (05:58)
[2018-05-05 06:04] LABS: ADD MAN DIFF? YES
[2018-05-05 07:24] LABS: ALANINE AMINOTRANSFERASE 7 IU/L (13-69); ALBUMIN/GLOBULIN RATIO 0.71; ALKALINE PHOSPHATASE 78 IU/L (42-121); ANION GAP 13 (5-13); ASPARTATE AMINO TRANSFERASE 12 IU/L (15-46); BILIRUBIN,INDIRECT 0.2 mg/dl (0-1.1); BILIRUBIN,TOTAL 0.2 mg/dl (0.2-1.3); BLOOD UREA NITROGEN 65 mg/dl (7-20); CALCIUM 9.1 mg/dl (8.4-10.2); CARBON DIOXIDE 22 mmol/L (21-31); CHLORIDE 100 mmol/L (97-110); CREATININE 4.89 mg/dl (0.61-1.24); GLUCOSE 232 mg/dl (70-220); MAGNESIUM 2.1 mg/dl (1.7-2.5); POTASSIUM 4.3 mmol/L (3.5-5.1); SODIUM 135 mmol/L (135-144); TOTAL PROTEIN 4.8 g/dl (6.1-8.1)
[2018-05-05] MEDS: LIDOCAINE 1% (MPF) 5 ML VIAL SC (08:10)
[2018-05-05] MEDS: LOPERAMIDE 2 MG CAP PO (08:16)
[2018-05-05] MEDS: MIDODRINE 5 MG TAB PO (08:16)
[2018-05-05 08:25] LABS: ANISOCYTOSIS 2+ (0-0); BAND NEUTROPHILS #M 3.7 10^3/ul (0.0-0.6); BAND NEUTROPHILS % (M) 37 % (0-4); BURR CELLS 1+ (0-0); EOSINOPHILS % (M) 7 % (0-7); GIANT THROMBO% (M) 3 % (0-0); LYMPHOCYTES #M 1.7 10^3/ul (0.8-2.9); LYMPHOCYTES % (M) 17 % (15-51); MONOCYTE #M 1.3 10^3/ul (0.3-0.9); MONOCYTES % (M) 13 % (0-11); PLATELET ESTIMATE DECREASED; POIKILOCYTOSIS 1+ (0-0); POLYCHROMASIA 2+ (0-0); PROMYELOCYTES #M 0.1 10^3/ul (0-0); PROMYELOCYTES % (M) 1 % (0-0); REACTIVE LYMPHOCYTES #M 0.1 10^3/ul (0.0-0.0); REACTIVE LYMPHOCYTES% (M) 1 % (0-0); SEG NEUT #M 2.8 10^3/ul (1.6-7.5); SEGMENTED NEUTROPHILS (M) % 24 % (39-77); SMUDGE%M 7 % (0-0); SPHEROCYTES 1+ (0-0)
[2018-05-05] MEDS: DOCUSATE SODIUM 100 MG CAP PO (09:00)
[2018-05-05] MEDS: INSULIN GLARGINE [LANTus] (100 UNITS/ML) SYG SC (09:20)
[2018-05-05] MEDS: ALBUMIN HUMAN 25% 100 ML IV (09:29)
[2018-05-05] MEDS: FAT EMULSION 20% 250 ML IV (12:09)
[2018-05-05] MEDS: HEPARIN 1000 UNITS/ML 10 ML INJ CATHETER (12:20)
[2018-05-05] MEDS: APIXABAN 5 MG TABLET PO (13:00)
[2018-05-05] MEDS: FAMOTIDINE 20 MG TAB PO (13:03)
[2018-05-05] MEDS: FOLIC ACID 1 MG TAB PO (13:03)
[2018-05-05] MEDS: CHOLECALCIFEROL 1,000 UNIT TAB PO (13:03)
[2018-05-05] MEDS: BALSAM PERU/CASTOR OIL 60 GM TUBE TOP ×2 (13:06→21:01)
[2018-05-05 13:53] LABS: HEMATOCRIT 28.2 % (42.0-52.0); HEMOGLOBIN 9.1 g/dl (14.0-18.0)
[2018-05-05] MEDS: TPN 1,000 ML IV (15:51)
[2018-05-06] MEDS: ACCU-CHEK XX ×7 (01:00→21:18)
[2018-05-06] MEDS: Insulin NOVOLOG SS MILD Algorithm (NPO/TPN/ENTERAL FEEDS) SC ×3 (01:36→09:51)
[2018-05-06 05:16] LABS: ABNORMAL IP MESSAGE 1; HEMATOCRIT 28.5 % (42.0-52.0); HEMOGLOBIN 8.8 g/dl (14.0-18.0); MEAN CORPUSCULAR HEMOGLOBIN 29.3 pg (29.0-33.0); MEAN CORPUSCULAR HGB CONC 30.9 g/dl (32.0-37.0); MEAN PLATELET VOLUME 13.4 fl (7.4-10.4); PLATELET COUNT 58 10^3/UL (140-415); POSITIVE DIFF @See below; RED CELL DISTRIBUTION WIDTH 16.2 % (11.5-14.5)
[2018-05-06 05:16] LABS: WHITE BLOOD COUNT 6.8 10^3/ul (4.8-10.8)
[2018-05-06 05:39] LABS: ALANINE AMINOTRANSFERASE 12 IU/L (13-69); ALBUMIN 2.2 g/dl (3.3-4.9); ALBUMIN/GLOBULIN RATIO 0.68; ALKALINE PHOSPHATASE 194 IU/L (42-121); ANION GAP 9 (5-13); ASPARTATE AMINO TRANSFERASE 12 IU/L (15-46); BILIRUBIN,INDIRECT 0.2 mg/dl (0-1.1); BILIRUBIN,TOTAL 0.2 mg/dl (0.2-1.3); BLOOD UREA NITROGEN 46 mg/dl (7-20); CALCIUM 9.3 mg/dl (8.4-10.2); CARBON DIOXIDE 26 mmol/L (21-31); CHLORIDE 99 mmol/L (97-110); CREATININE 3.39 mg/dl (0.61-1.24); GLUCOSE 296 mg/dl (70-220); POTASSIUM 3.7 mmol/L (3.5-5.1); SODIUM 134 mmol/L (135-144); TOTAL PROTEIN 5.4 g/dl (6.1-8.1)
[2018-05-06 05:41] LABS: ADD MAN DIFF? YES
[2018-05-06 05:44] LABS: MAGNESIUM 1.9 mg/dl (1.7-2.5)
[2018-05-06] MEDS: TPN 1,000 ML IV ×2 (05:57→21:49)
[2018-05-06 05:58] LABS: PHOSPHORUS 1.7 mg/dl (2.5-4.9)
[2018-05-06] MEDS: PIPER-TAZO 3.375 GM IV (PMX) 100 ML IVPB ×3 (06:35→21:17)
[2018-05-06] MEDS: LEVOTHYROXINE 50 MCG TAB PO (06:35)
[2018-05-06 07:42] LABS: ANISOCYTOSIS 1+ (0-0); BAND NEUTROPHILS #M 2.7 10^3/ul (0.0-0.6); BAND NEUTROPHILS % (M) 41 % (0-4); EOSINOPHILS % (M) 6 % (0-7); LYMPHOCYTES #M 0.2 10^3/ul (0.8-2.9); LYMPHOCYTES % (M) 4 % (15-51); METAMYELOCYTES #M 0.3 10^3/ul (0.0-0.0); METAMYELOCYTES %M 5 % (0-0); MONOCYTE #M 0.9 10^3/ul (0.3-0.9); MONOCYTES % (M) 14 % (0-11); PLATELET ESTIMATE DECREASED; POIKILOCYTOSIS 1+ (0-0); POLYCHROMASIA 1+ (0-0); PROMYELOCYTES % (M) 1 % (0-0); REACTIVE LYMPHOCYTES #M 0.4 10^3/ul (0.0-0.0); REACTIVE LYMPHOCYTES% (M) 7 % (0-0); SEG NEUT #M 1.7 10^3/ul (1.6-7.5); SEGMENTED NEUTROPHILS (M) % 22 % (39-77); SMUDGE%M 21 % (0-0); TARGET CELLS 1+ (0-0); TOXIC GRANULATION 2+ (0-0)
[2018-05-06] MEDS: DOCUSATE SODIUM 100 MG CAP PO (09:00)
[2018-05-06] MEDS: CHOLECALCIFEROL 1,000 UNIT TAB PO (09:44)
[2018-05-06] MEDS: LOPERAMIDE 2 MG CAP PO (09:44)
[2018-05-06] MEDS: FAMOTIDINE 20 MG TAB PO (09:44)
[2018-05-06] MEDS: FOLIC ACID 1 MG TAB PO (09:44)
[2018-05-06] MEDS: INSULIN GLARGINE [LANTus] (100 UNITS/ML) SYG SC ×2 (09:46→21:51)
[2018-05-06] MEDS: BALSAM PERU/CASTOR OIL 60 GM TUBE TOP ×2 (09:51→21:18)
[2018-05-06] MEDS: INSULIN ASPART [NOVOLOG] 3 ML PEN SC ×3 (13:18→21:36)
[2018-05-06] MEDS: FAT EMULSION 20% 250 ML IV (14:52)
[2018-05-06] MEDS ORDERED: INSULIN GLARGINE [LANTus] (100 UNITS/ML) SYG SC (19:00)
[2018-05-06] MEDS: APIXABAN 5 MG TABLET PO (21:24)
[2018-05-07] MEDS: INSULIN ASPART [NOVOLOG] 3 ML PEN SC ×5 (01:31→17:33)
[2018-05-07] MEDS: ACCU-CHEK XX ×7 (01:31→21:00)
[2018-05-07] MEDS: KETOROLAC 15 MG INJ IV (02:57)
[2018-05-07] MEDS: PIPER-TAZO 3.375 GM IV (PMX) 100 ML IVPB (05:21)
[2018-05-07] MEDS: LEVOTHYROXINE 50 MCG TAB PO (05:21)
[2018-05-07 06:10] LABS: ABNORMAL IP MESSAGE 1; HEMATOCRIT 28.1 % (42.0-52.0); HEMOGLOBIN 8.5 g/dl (14.0-18.0); MEAN CORPUSCULAR HEMOGLOBIN 28.6 pg (29.0-33.0); MEAN CORPUSCULAR HGB CONC 30.2 g/dl (32.0-37.0); MEAN CORPUSCULAR VOLUME 94.6 fl (82.0-101.0); PLATELET COUNT 44 10^3/UL (140-415); POSITIVE DIFF @See below; RED BLOOD COUNT 2.97 10^6/ul (4.70-6.10); RED CELL DISTRIBUTION WIDTH 16.2 % (11.5-14.5)
[2018-05-07 06:10] LABS: WHITE BLOOD COUNT 6.6 10^3/ul (4.8-10.8)
[2018-05-07 06:20] LABS: RETICULOCYTE COUNT # 0.018 X10^6 (0.020-0.110); RETICULOCYTE COUNT % 0.6 % (0.5-1.5)
[2018-05-07 06:20] LABS: RETICULOCYTE RBC 2.89
[2018-05-07 06:26] LABS: ADD MAN DIFF? YES
[2018-05-07 06:35] LABS: ALANINE AMINOTRANSFERASE 13 IU/L (13-69); ALBUMIN 2.2 g/dl (3.3-4.9); ALBUMIN/GLOBULIN RATIO 0.73; ALKALINE PHOSPHATASE 262 IU/L (42-121); ANION GAP 12 (5-13); ASPARTATE AMINO TRANSFERASE 17 IU/L (15-46); BILIRUBIN,INDIRECT 0.2 mg/dl (0-1.1); BILIRUBIN,TOTAL 0.2 mg/dl (0.2-1.3); BLOOD UREA NITROGEN 65 mg/dl (7-20); CALCIUM 9.6 mg/dl (8.4-10.2); CARBON DIOXIDE 21 mmol/L (21-31); CHLORIDE 101 mmol/L (97-110); CREATININE 4.19 mg/dl (0.61-1.24); GLUCOSE 270 mg/dl (70-220); POTASSIUM 3.8 mmol/L (3.5-5.1); SODIUM 134 mmol/L (135-144); TOTAL PROTEIN 5.2 g/dl (6.1-8.1)
[2018-05-07 06:43] LABS: IRON 22 ug/dl (35-150)
[2018-05-07 06:53] LABS: % IRON SATURATION 19 % SAT (22-52); TOTAL IRON BINDING CAPACITY 113 ug/dl (241-421)
[2018-05-07 07:16] LABS: PHOSPHORUS 1.9 mg/dl (2.5-4.9)
[2018-05-07] MEDS ORDERED: INSULIN GLARGINE [LANTus] (100 UNITS/ML) SYG SC ×3 (08:00)
[2018-05-07] MEDS: APIXABAN 5 MG TABLET PO (09:00)
[2018-05-07] MEDS: LOPERAMIDE 2 MG CAP PO (09:00)
[2018-05-07] MEDS: FAMOTIDINE 20 MG TAB PO (09:00)
[2018-05-07] MEDS: FOLIC ACID 1 MG TAB PO (09:00)
[2018-05-07] MEDS: CHOLECALCIFEROL 1,000 UNIT TAB PO (09:00)
[2018-05-07] MEDS: FAT EMULSION 20% 250 ML IV (09:55)
[2018-05-07 10:42] LABS: ANISOCYTOSIS 2+ (0-0); BAND NEUTROPHILS #M 2.3 10^3/ul (0.0-0.6); BAND NEUTROPHILS % (M) 36 % (0-4); BURR CELLS 1+ (0-0); EOSINOPHILS % (M) 4 % (0-7); HYPOCHROMASIA 1+ (0-0); LYMPHOCYTES #M 0.6 10^3/ul (0.8-2.9); LYMPHOCYTES % (M) 10 % (15-51); METAMYELOCYTES %M 1 % (0-0); MONOCYTE #M 0.3 10^3/ul (0.3-0.9); MONOCYTES % (M) 5 % (0-11); PLATELET ESTIMATE DECREASED; POIKILOCYTOSIS 1+ (0-0); POLYCHROMASIA 1+ (0-0); REACTIVE LYMPHOCYTES% (M) 1 % (0-0); SEGMENTED NEUTROPHILS (M) % 43 % (39-77); SMUDGE%M 9 % (0-0)
[2018-05-07] MEDS: BALSAM PERU/CASTOR OIL 60 GM TUBE TOP (11:57)
[2018-05-07] MEDS: SODIUM PHOSPHATE 30 MMOL in SOD CHLORIDE 0.9% 250 ML IV* (11:57)
[2018-05-07] MEDS: SOD FERRIC GLUC COMPLX 125 MG in SOD CHLORIDE 0.9% 100 ML IVPB (13:30)
[2018-05-07] MEDS: TPN 1,000 ML IV (13:38)
[2018-05-07 17:24] LABS: AADO2 Arterial 38.3 mmHg (7.0-24.0); Arterial Base Excess -4.9 mmol/L (-3.0-3); Arterial Blood Gas Oxygen Sat 92.5 mmHG (95.0-100.0); Arterial COHb 0.5 % (0.0-3.0); Arterial Fraction of Oxyhgb 91.8 % (93.0-99.0); Arterial HCO3 19.9 mmol/L (22.0-26.0); Arterial MetHb 0.3 % (0.0-1.5); Arterial pCO2 35.8 mmhg (35-45); MODE ROOM AIR; Site Right Brachial
[2018-05-07 17:53] LABS: AMMONIA < 9 umol/l (9-30)
[2018-05-07] MEDS ORDERED: ALBUTEROL/IPRATROPIUM (NEB) 3 ML AMP HHN (19:00)
[2018-05-07] MEDS: MIDODRINE 5 MG TAB PO (19:59)
[2018-05-07] MEDS: ALBUTEROL/IPRATROPIUM (NEB) 3 ML AMP HHN (20:00)
[2018-05-07] MEDS: HEPARIN 1000 UNITS/ML 10 ML INJ CATHETER (23:17)
[2018-05-07] MEDS: INSULIN GLARGINE [LANTus] (100 UNITS/ML) SYG SC (23:59)
[2018-05-08] MEDS: PIPER-TAZO 2.25 GM (PMX) 50 ML IVPB ×3 (00:08→13:26)
[2018-05-08] MEDS: BALSAM PERU/CASTOR OIL 60 GM TUBE TOP ×3 (00:38→20:36)
[2018-05-08] MEDS: FLUTICASONE 0.05% 16 GM NAS SPRAY NASAL ×3 (02:02→20:29)
[2018-05-08] MEDS: INSULIN ASPART [NOVOLOG] 3 ML PEN SC ×7 (02:16→20:35)
[2018-05-08] MEDS: ACCU-CHEK XX ×7 (02:16→20:36)
[2018-05-08] MEDS: TPN 1,000 ML IV ×2 (04:56→20:28)
[2018-05-08 05:49] LABS: WHITE BLOOD COUNT 4.9 10^3/ul (4.8-10.8)
[2018-05-08 05:49] LABS: ABNORMAL IP MESSAGE 1; HEMATOCRIT 26.6 % (42.0-52.0); HEMOGLOBIN 8.2 g/dl (14.0-18.0); MEAN CORPUSCULAR HEMOGLOBIN 29.6 pg (29.0-33.0); MEAN CORPUSCULAR HGB CONC 30.8 g/dl (32.0-37.0); MEAN PLATELET VOLUME 12.7 fl (7.4-10.4); PLATELET COUNT 45 10^3/UL (140-415); POSITIVE DIFF @See below; RED BLOOD COUNT 2.77 10^6/ul (4.70-6.10)
[2018-05-08] MEDS: LEVOTHYROXINE 50 MCG TAB PO ×2 (06:00→10:02)
[2018-05-08 06:37] LABS: ANION GAP 8 (5-13); BLOOD UREA NITROGEN 44 mg/dl (7-20); CALCIUM 9.2 mg/dl (8.4-10.2); CARBON DIOXIDE 23 mmol/L (21-31); CHLORIDE 105 mmol/L (97-110); CREATININE 2.99 mg/dl (0.61-1.24); GLUCOSE 199 mg/dl (70-220); MAGNESIUM 1.8 mg/dl (1.7-2.5); PHOSPHORUS 2.4 mg/dl (2.5-4.9); POTASSIUM 3.5 mmol/L (3.5-5.1); SODIUM 136 mmol/L (135-144)
[2018-05-08 06:49] LABS: ADD MAN DIFF? YES
[2018-05-08] MEDS: ALBUTEROL/IPRATROPIUM (NEB) 3 ML AMP HHN ×3 (08:00→19:35)
[2018-05-08 09:18] LABS: BAND NEUTROPHILS #M 0.5 10^3/ul (0.0-0.6); BAND NEUTROPHILS % (M) 12 % (0-4); BASOPHILS % (M) 1 % (0-2); BURR CELLS 1+ (0-0); EOSINOPHILS % (M) 8 % (0-7); GIANT THROMBO% (M) 8 % (0-0); LYMPHOCYTES #M 0.4 10^3/ul (0.8-2.9); LYMPHOCYTES % (M) 10 % (15-51); METAMYELOCYTES %M 1 % (0-0); MONOCYTE #M 0.3 10^3/ul (0.3-0.9); MONOCYTES % (M) 8 % (0-11); MYELOCYTES % (M) 2 % (0-0); OVALOCYTES 1+ (0-0); PLATELET ESTIMATE DECREASED; PROMYELOCYTES % (M) 2 % (0-0); SEG NEUT #M 2.8 10^3/ul (1.6-7.5); SEGMENTED NEUTROPHILS (M) % 56 % (39-77); SMUDGE%M 6 % (0-0); STOMATOCYTES 1+ (0-0); TOXIC GRANULATION 1+ (0-0)
[2018-05-08] MEDS: FAT EMULSION 20% 250 ML IV (10:01)
[2018-05-08] MEDS: LORATADINE 10 MG TAB NGT (10:02)
[2018-05-08] MEDS: FOLIC ACID 1 MG TAB PO (10:03)
[2018-05-08] MEDS: LOPERAMIDE 2 MG CAP PO (10:03)
[2018-05-08] MEDS: CHOLECALCIFEROL 1,000 UNIT TAB PO (10:03)
[2018-05-08] MEDS: FAMOTIDINE 20 MG TAB PO (10:03)
[2018-05-08] MEDS: SOD FERRIC GLUC COMPLX 125 MG in SOD CHLORIDE 0.9% 100 ML IVPB (13:26)
[2018-05-08] MEDS: POTASSIUM PHOSPHATE 15 MM in SOD CHLORIDE 0.9% 250 ML IV (13:42)
[2018-05-08] MEDS: MAGNESIUM SULFATE 1 GM/D5W 100 ML IVPB (16:35)
[2018-05-08] MEDS: INSULIN GLARGINE [LANTus] (100 UNITS/ML) SYG SC (20:34)
[2018-05-09] MEDS: ACCU-CHEK XX ×7 (01:00→21:43)
[2018-05-09] MEDS: INSULIN ASPART [NOVOLOG] 3 ML PEN SC ×6 (01:19→20:26)
[2018-05-09] MEDS: LEVOTHYROXINE 50 MCG TAB PO (05:27)
[2018-05-09 05:45] LABS: WHITE BLOOD COUNT 5.9 10^3/ul (4.8-10.8)
[2018-05-09 05:45] LABS: ABNORMAL IP MESSAGE 1; HEMATOCRIT 26.4 % (42.0-52.0); HEMOGLOBIN 8.1 g/dl (14.0-18.0); MEAN CORPUSCULAR HEMOGLOBIN 29.5 pg (29.0-33.0); MEAN CORPUSCULAR HGB CONC 30.7 g/dl (32.0-37.0); MEAN PLATELET VOLUME 13.3 fl (7.4-10.4); PLATELET COUNT 82 10^3/UL (140-415); POSITIVE DIFF @See below; RED BLOOD COUNT 2.75 10^6/ul (4.70-6.10); RED CELL DISTRIBUTION WIDTH 16.3 % (11.5-14.5)
[2018-05-09 05:49] LABS: ADD MAN DIFF? YES
[2018-05-09 05:58] LABS: ANION GAP 11 (5-13); BLOOD UREA NITROGEN 60 mg/dl (7-20); CALCIUM 9.5 mg/dl (8.4-10.2); CARBON DIOXIDE 20 mmol/L (21-31); CHLORIDE 106 mmol/L (97-110); GLUCOSE 223 mg/dl (70-220); PHOSPHORUS 3.8 mg/dl (2.5-4.9); SODIUM 137 mmol/L (135-144)
[2018-05-09 07:26] LABS: ANISOCYTOSIS 1+ (0-0); BAND NEUTROPHILS % (M) 34 % (0-4); BURR CELLS 3+ (0-0); EOSINOPHILS % (M) 9 % (0-7); LYMPHOCYTES #M 0.5 10^3/ul (0.8-2.9); LYMPHOCYTES % (M) 10 % (15-51); METAMYELOCYTES %M 1 % (0-0); MONOCYTE #M 0.4 10^3/ul (0.3-0.9); MONOCYTES % (M) 8 % (0-11); MYELOCYTES #M 0.1 10^3/ul (0.0-0.0); MYELOCYTES % (M) 2 % (0-0); PLATELET ESTIMATE DECREASED; POIKILOCYTOSIS 3+ (0-0); POLYCHROMASIA 3+ (0-0); REACTIVE LYMPHOCYTES #M 0.1 10^3/ul (0.0-0.0); REACTIVE LYMPHOCYTES% (M) 2 % (0-0); SEG NEUT #M 2.1 10^3/ul (1.6-7.5); SEGMENTED NEUTROPHILS (M) % 34 % (39-77); SMUDGE%M 21 % (0-0); SPHEROCYTES 1+ (0-0)
[2018-05-09] MEDS: ALBUTEROL/IPRATROPIUM (NEB) 3 ML AMP HHN ×3 (08:32→20:02)
[2018-05-09] MEDS: MIDODRINE 5 MG TAB PO (08:51)
[2018-05-09] MEDS: FLUTICASONE 0.05% 16 GM NAS SPRAY NASAL ×2 (09:00→20:24)
[2018-05-09] MEDS: CHOLECALCIFEROL 1,000 UNIT TAB PO (09:00)
[2018-05-09] MEDS: LORATADINE 10 MG TAB NGT (09:00)
[2018-05-09] MEDS: FAMOTIDINE 20 MG TAB PO (09:00)
[2018-05-09] MEDS: FOLIC ACID 1 MG TAB PO (09:00)
[2018-05-09] MEDS: ALBUMIN HUMAN 25% 100 ML IV (10:41)
[2018-05-09 12:10] LABS: HEPATITIS B SURFACE ANTIGEN NEGATIVE (NEGATIVE)
[2018-05-09] MEDS: TPN 1,000 ML IV (12:14)
[2018-05-09] MEDS: FAT EMULSION 20% 250 ML IV (12:15)
[2018-05-09] MEDS: BALSAM PERU/CASTOR OIL 60 GM TUBE TOP ×2 (12:15→20:25)
[2018-05-09] MEDS: HEPARIN 1000 UNITS/ML 10 ML INJ CATHETER (12:51)
[2018-05-09] MEDS: LOPERAMIDE 2 MG CAP PO (14:01)
[2018-05-09] MEDS: SOD FERRIC GLUC COMPLX 125 MG in SOD CHLORIDE 0.9% 100 ML IVPB (15:10)
[2018-05-09 16:55] LABS: FREE T4 (FREE THYROXINE) 1.38 ng/dl (0.85-1.93)
[2018-05-09] MEDS: INSULIN GLARGINE [LANTus] (100 UNITS/ML) SYG SC (20:30)
[2018-05-10] MEDS: INSULIN ASPART [NOVOLOG] 3 ML PEN SC ×6 (01:00→21:00)
[2018-05-10] MEDS: ACCU-CHEK XX ×7 (01:23→21:00)
[2018-05-10] MEDS: TPN 1,000 ML IV ×2 (02:27→17:32)
[2018-05-10] MEDS: KETOROLAC 30 MG INJ IV (03:14)
[2018-05-10 05:09] LABS: WHITE BLOOD COUNT 6.2 10^3/ul (4.8-10.8)
[2018-05-10 05:10] LABS: ABNORMAL IP MESSAGE 1; HEMATOCRIT 23.5 % (42.0-52.0); HEMOGLOBIN 7.1 g/dl (14.0-18.0); MEAN CORPUSCULAR HGB CONC 30.2 g/dl (32.0-37.0); MEAN CORPUSCULAR VOLUME 95.9 fl (82.0-101.0); MEAN PLATELET VOLUME 12.9 fl (7.4-10.4); PLATELET COUNT 97 10^3/UL (140-415); POSITIVE DIFF @See below; RED BLOOD COUNT 2.45 10^6/ul (4.70-6.10); RED CELL DISTRIBUTION WIDTH 16.2 % (11.5-14.5)
[2018-05-10 05:12] LABS: ADD MAN DIFF? YES
[2018-05-10] MEDS: LEVOTHYROXINE 50 MCG TAB PO (05:27)
[2018-05-10 05:56] LABS: ANION GAP 8 (5-13); BLOOD UREA NITROGEN 43 mg/dl (7-20); CALCIUM 9.5 mg/dl (8.4-10.2); CARBON DIOXIDE 25 mmol/L (21-31); CHLORIDE 102 mmol/L (97-110); CREATININE 3.16 mg/dl (0.61-1.24); GLUCOSE 122 mg/dl (70-220); MAGNESIUM 1.9 mg/dl (1.7-2.5); PHOSPHORUS 2.4 mg/dl (2.5-4.9); POTASSIUM 3.5 mmol/L (3.5-5.1); SODIUM 135 mmol/L (135-144)
[2018-05-10 06:06] LABS: TRIGLYCERIDES 76 mg/dl (0-149)
[2018-05-10 06:14] LABS: PREALBUMIN 4.9 mg/dl (17.6-36.0)
[2018-05-10 07:49] LABS: ANISOCYTOSIS 1+ (0-0); BAND NEUTROPHILS #M 1.2 10^3/ul (0.0-0.6); BAND NEUTROPHILS % (M) 20 % (0-4); BASOPHIL #M 0.1 10^3/ul (0.0-0.0); BASOPHILS % (M) 2 % (0-2); BURR CELLS 1+ (0-0); EOSINOPHILS % (M) 6 % (0-7); LYMPHOCYTES #M 0.6 10^3/ul (0.8-2.9); LYMPHOCYTES % (M) 10 % (15-51); MONOCYTE #M 0.3 10^3/ul (0.3-0.9); MONOCYTES % (M) 5 % (0-11); PLATELET ESTIMATE DECREASED; POIKILOCYTOSIS 1+ (0-0); POLYCHROMASIA 3+ (0-0); SEG NEUT #M 3.4 10^3/ul (1.6-7.5); SEGMENTED NEUTROPHILS (M) % 53 % (39-77); SMUDGE%M 11 % (0-0); TARGET CELLS 1+ (0-0)
[2018-05-10 07:51] LABS: TOXIC GRANULATION 2+ (0-0)
[2018-05-10] MEDS: ALBUTEROL/IPRATROPIUM (NEB) 3 ML AMP HHN ×3 (08:26→21:07)
[2018-05-10] MEDS: LOPERAMIDE 2 MG CAP PO ×2 (09:48→21:03)
[2018-05-10] MEDS: LORATADINE 10 MG TAB NGT (09:48)
[2018-05-10] MEDS: CHOLECALCIFEROL 1,000 UNIT TAB PO (09:48)
[2018-05-10] MEDS: FAMOTIDINE 20 MG TAB PO (09:48)
[2018-05-10] MEDS: FOLIC ACID 1 MG TAB PO (09:48)
[2018-05-10] MEDS: BALSAM PERU/CASTOR OIL 60 GM TUBE TOP ×2 (09:49→21:26)
[2018-05-10] MEDS: FLUTICASONE 0.05% 16 GM NAS SPRAY NASAL ×2 (09:50→21:03)
[2018-05-10] MEDS: FAT EMULSION 20% 250 ML IV (11:57)
[2018-05-10] MEDS: SOD FERRIC GLUC COMPLX 125 MG in SOD CHLORIDE 0.9% 100 ML IVPB (13:22)
[2018-05-10] MEDS: INSULIN GLARGINE [LANTus] (100 UNITS/ML) SYG SC ×2 (13:29→21:07)
[2018-05-10 14:07] LABS: HEMATOCRIT 25.2 % (42.0-52.0); HEMOGLOBIN 7.6 g/dl (14.0-18.0)
[2018-05-10] MEDS: ACETAMINOPHEN 325 MG TAB PO (14:17)
[2018-05-10] MEDS: POTASSIUM PHOSPHATE 15 MM in SOD CHLORIDE 0.9% 250 ML IV (15:23)
[2018-05-10] MEDS: FERROUS SULFATE (EC) 325 MG TAB PO (21:03)
[2018-05-11] MEDS: INSULIN ASPART [NOVOLOG] 3 ML PEN SC ×6 (01:00→20:25)
[2018-05-11] MEDS: ACCU-CHEK XX ×7 (01:00→20:25)
[2018-05-11] MEDS: ACETAMINOPHEN 325 MG TAB PO (03:40)
[2018-05-11] MEDS: DEXTROSE 50% 50 ML SYRINGE IV ×3 (05:22→18:49)
[2018-05-11] MEDS: LEVOTHYROXINE 50 MCG TAB PO (05:30)
[2018-05-11 05:36] LABS: ABNORMAL IP MESSAGE 1; HEMATOCRIT 23.6 % (42.0-52.0); HEMOGLOBIN 7.1 g/dl (14.0-18.0); MEAN CORPUSCULAR HGB CONC 30.1 g/dl (32.0-37.0); MEAN CORPUSCULAR VOLUME 96.3 fl (82.0-101.0); MEAN PLATELET VOLUME 12.4 fl (7.4-10.4); PLATELET COUNT 123 10^3/UL (140-415); POSITIVE DIFF @See below; RED BLOOD COUNT 2.45 10^6/ul (4.70-6.10); RED CELL DISTRIBUTION WIDTH 16.6 % (11.5-14.5)
[2018-05-11 05:36] LABS: WHITE BLOOD COUNT 8.5 10^3/ul (4.8-10.8)
[2018-05-11 06:05] LABS: ADD MAN DIFF? YES
[2018-05-11 06:07] LABS: ANION GAP 8 (5-13); BLOOD UREA NITROGEN 60 mg/dl (7-20); CALCIUM 9.4 mg/dl (8.4-10.2); CARBON DIOXIDE 23 mmol/L (21-31); CHLORIDE 102 mmol/L (97-110); CREATININE 3.84 mg/dl (0.61-1.24); MAGNESIUM 1.7 mg/dl (1.7-2.5); PHOSPHORUS 3.4 mg/dl (2.5-4.9); POTASSIUM 3.8 mmol/L (3.5-5.1); SODIUM 133 mmol/L (135-144)
[2018-05-11 06:27] LABS: GLUCOSE 33 mg/dl (70-220)
[2018-05-11] MEDS: ALBUMIN HUMAN 25% 100 ML IV (08:15)
[2018-05-11] MEDS: FAMOTIDINE 20 MG TAB PO (08:20)
[2018-05-11] MEDS: FERROUS SULFATE (EC) 325 MG TAB PO ×2 (08:20→20:42)
[2018-05-11] MEDS: CHOLECALCIFEROL 1,000 UNIT TAB PO (08:20)
[2018-05-11] MEDS: LOPERAMIDE 2 MG CAP PO ×2 (08:20→20:42)
[2018-05-11] MEDS: FOLIC ACID 1 MG TAB PO (08:20)
[2018-05-11] MEDS: LORATADINE 10 MG TAB NGT (08:21)
[2018-05-11] MEDS: FAT EMULSION 20% 250 ML IV (08:21)
[2018-05-11] MEDS: FLUTICASONE 0.05% 16 GM NAS SPRAY NASAL ×2 (08:21→20:44)
[2018-05-11] MEDS: BALSAM PERU/CASTOR OIL 60 GM TUBE TOP ×2 (08:21→20:44)
[2018-05-11] MEDS: MIDODRINE 5 MG TAB PO (08:27)
[2018-05-11] MEDS: INSULIN GLARGINE [LANTus] (100 UNITS/ML) SYG SC ×2 (08:27→20:00)
[2018-05-11] MEDS: ALBUTEROL/IPRATROPIUM (NEB) 3 ML AMP HHN ×3 (08:50→19:56)
[2018-05-11 09:16] LABS: ANISOCYTOSIS 1+ (0-0); BAND NEUTROPHILS #M 2.2 10^3/ul (0.0-0.6); BAND NEUTROPHILS % (M) 27 % (0-4); EOSINOPHILS % (M) 13 % (0-7); GIANT THROMBO% (M) 1 % (0-0); HYPOCHROMASIA 1+ (0-0); LYMPHOCYTES #M 1.1 10^3/ul (0.8-2.9); LYMPHOCYTES % (M) 13 % (15-51); MONOCYTE #M 0.1 10^3/ul (0.3-0.9); MONOCYTES % (M) 2 % (0-11); OVALOCYTES 1+ (0-0); PLATELET ESTIMATE DECREASED; POIKILOCYTOSIS 1+ (0-0); POLYCHROMASIA 1+ (0-0); REACTIVE LYMPHOCYTES #M 0.3 10^3/ul (0.0-0.0); REACTIVE LYMPHOCYTES% (M) 4 % (0-0); SEG NEUT #M 3.7 10^3/ul (1.6-7.5); SEGMENTED NEUTROPHILS (M) % 41 % (39-77); SMUDGE%M 5 % (0-0); TARGET CELLS 1+ (0-0)
[2018-05-11] MEDS: traMADol-APAP 37.5-325 1 TAB PO (10:14)
[2018-05-11 10:42] LABS: HEMATOCRIT 22.5 % (42.0-52.0)
[2018-05-11] MEDS: TPN 1,000 ML IV (11:13)
[2018-05-11] MEDS ORDERED: VANCOMYCIN IV PER PHARMACY XX (11:30)
[2018-05-11] MEDS: LEVOFLOXACIN 250MG/D5W (PMX) 50 ML IVPB (12:21)
[2018-05-11] MEDS: NORepinephrine 8MG/250 ML (PMX 250 ML IV (12:39)
[2018-05-11] MEDS: VANCOMYCIN HCL 1.5 GM in SOD CHLORIDE 0.9% 250 ML IVPB (12:46)
[2018-05-11 13:40] LABS: GLUCOSE 30 mg/dl (70-220)
[2018-05-11] MEDS: metroNIDAZOLE 500 MG/NS (PMX) 100 ML IVPB ×2 (14:27→21:36)
[2018-05-11 15:10] LABS: AADO2 Arterial 43.4 mmHg (7.0-24.0); Allen Test ACCEPTAB; Arterial Base Excess -5.9 mmol/L (-3.0-3); Arterial Blood Gas Oxygen Sat 98.1 mmHG (95.0-100.0); Arterial COHb 0.8 % (0.0-3.0); Arterial Fraction of Oxyhgb 97.2 % (93.0-99.0); Arterial HCO3 19.1 mmol/L (22.0-26.0); Arterial MetHb 0.1 % (0.0-1.5); Arterial pCO2 34.9 mmhg (35-45); MODE NASAL CANNULA; Site Right Brachial
[2018-05-11] MEDS: MAGNESIUM SULFATE 1 GM/D5W 100 ML IVPB (16:36)
[2018-05-12] MEDS: INSULIN ASPART [NOVOLOG] 3 ML PEN SC ×6 (01:00→21:00)
[2018-05-12] MEDS: DEXTROSE 50% 50 ML SYRINGE IV ×2 (01:02→03:28)
[2018-05-12] MEDS: ACCU-CHEK XX ×7 (01:06→21:20)
[2018-05-12] MEDS: TPN 1,000 ML IV ×2 (01:33→17:47)
[2018-05-12] MEDS: DEXTROSE 10% 1,000 ML IV (02:26)
[2018-05-12 05:18] LABS: ADD MAN DIFF? NO
[2018-05-12] MEDS: metroNIDAZOLE 500 MG/NS (PMX) 100 ML IVPB ×3 (05:27→21:54)
[2018-05-12] MEDS: LEVOTHYROXINE 50 MCG TAB PO (05:27)
[2018-05-12 05:29] LABS: ABNORMAL IP MESSAGE 1; BASOPHILS % 0.4 % (0.0-2.0); EOSINOPHILS # 0.4 10^3/ul (0.0-0.5); EOSINOPHILS % 4.6 % (0.0-7.0); HEMATOCRIT 23.6 % (42.0-52.0); LYMPHOCYTES # 0.6 10^3/ul (0.8-2.9); MEAN CORPUSCULAR HEMOGLOBIN 28.8 pg (29.0-33.0); MEAN CORPUSCULAR HGB CONC 29.7 g/dl (32.0-37.0); MEAN CORPUSCULAR VOLUME 97.1 fl (82.0-101.0); MEAN PLATELET VOLUME 12.3 fl (7.4-10.4); MONOCYTE # 0.9 10^3/ul (0.3-0.9); MONOCYTES % 10.5 % (0.0-11.0); NEUTROPHIL # 6.2 10^3/ul (1.6-7.5); NEUTROPHILS % 76.3 % (39.0-77.0); PLATELET COUNT 134 10^3/UL (140-415); POSITIVE DIFF @See below; RED BLOOD COUNT 2.43 10^6/ul (4.70-6.10); RED CELL DISTRIBUTION WIDTH 16.8 % (11.5-14.5)
[2018-05-12 05:29] LABS: WHITE BLOOD COUNT 8.1 10^3/ul (4.8-10.8)
[2018-05-12 05:54] LABS: ANION GAP 13 (5-13); BLOOD UREA NITROGEN 69 mg/dl (7-20); CALCIUM 9.4 mg/dl (8.4-10.2); CARBON DIOXIDE 21 mmol/L (21-31); CHLORIDE 100 mmol/L (97-110); CREATININE 4.56 mg/dl (0.61-1.24); GLUCOSE 89 mg/dl (70-220); MAGNESIUM 1.9 mg/dl (1.7-2.5); PHOSPHORUS 4.1 mg/dl (2.5-4.9); POTASSIUM 4.1 mmol/L (3.5-5.1); SODIUM 134 mmol/L (135-144)
[2018-05-12] MEDS: ALBUTEROL/IPRATROPIUM (NEB) 3 ML AMP HHN ×3 (07:35→19:21)
[2018-05-12 08:07] LABS: IMMEDIATE SPIN CROSSMATCH 1 3
[2018-05-12] MEDS: SOD CHLORIDE 0.9% 250 ML IV* (08:30)
[2018-05-12] MEDS: FOLIC ACID 1 MG TAB PO (08:44)
[2018-05-12] MEDS: MIDODRINE 5 MG TAB PO (08:44)
[2018-05-12] MEDS: FERROUS SULFATE (EC) 325 MG TAB PO ×2 (08:44→21:16)
[2018-05-12] MEDS: CHOLECALCIFEROL 1,000 UNIT TAB PO (08:44)
[2018-05-12] MEDS: FAMOTIDINE 20 MG TAB PO (08:44)
[2018-05-12] MEDS: BALSAM PERU/CASTOR OIL 60 GM TUBE TOP ×2 (08:45→21:20)
[2018-05-12] MEDS: FLUTICASONE 0.05% 16 GM NAS SPRAY NASAL ×2 (08:45→21:16)
[2018-05-12] MEDS: LORATADINE 10 MG TAB NGT (08:55)
[2018-05-12] MEDS: LOPERAMIDE 2 MG CAP PO ×2 (09:50→21:16)
[2018-05-12] MEDS: FAT EMULSION 20% 250 ML IV (11:27)
[2018-05-12] MEDS: HEPARIN 1000 UNITS/ML 10 ML INJ CATHETER (12:09)
[2018-05-12] MEDS: NORepinephrine 8MG/250 ML (PMX 250 ML IV (13:24)
[2018-05-12] MEDS: MAGNESIUM SULFATE 1 GM/D5W 100 ML IVPB (15:00)
[2018-05-13] MEDS: INSULIN ASPART [NOVOLOG] 3 ML PEN SC ×6 (01:16→21:33)
[2018-05-13] MEDS: ACCU-CHEK XX ×7 (01:17→21:00)
[2018-05-13] MEDS: metroNIDAZOLE 500 MG/NS (PMX) 100 ML IVPB ×3 (05:08→22:57)
[2018-05-13] MEDS: LEVOTHYROXINE 50 MCG TAB PO (05:08)
[2018-05-13 05:29] LABS: HEMATOCRIT 27.2 % (42.0-52.0); HEMOGLOBIN 8.6 g/dl (14.0-18.0); MEAN CORPUSCULAR HEMOGLOBIN 29.1 pg (29.0-33.0); MEAN CORPUSCULAR HGB CONC 31.6 g/dl (32.0-37.0); MEAN CORPUSCULAR VOLUME 91.9 fl (82.0-101.0); MEAN PLATELET VOLUME 12.3 fl (7.4-10.4); PLATELET COUNT 145 10^3/UL (140-415); POSITIVE DIFF @See below; RED BLOOD COUNT 2.96 10^6/ul (4.70-6.10)
[2018-05-13 05:29] LABS: WHITE BLOOD COUNT 6.2 10^3/ul (4.8-10.8)
[2018-05-13 05:42] LABS: ADD MAN DIFF? YES
[2018-05-13 05:46] LABS: ANION GAP 9 (5-13); BLOOD UREA NITROGEN 54 mg/dl (7-20); CALCIUM 9.2 mg/dl (8.4-10.2); CARBON DIOXIDE 21 mmol/L (21-31); CHLORIDE 102 mmol/L (97-110); CREATININE 3.69 mg/dl (0.61-1.24); GLUCOSE 251 mg/dl (70-220); PHOSPHORUS 2.8 mg/dl (2.5-4.9); POTASSIUM 3.7 mmol/L (3.5-5.1); SODIUM 132 mmol/L (135-144)
[2018-05-13 05:47] LABS: VANCOMYCIN,RANDOM 12.1 ug/ml
[2018-05-13 07:18] LABS: ANISOCYTOSIS 1+ (0-0); BAND NEUTROPHILS #M 1.4 10^3/ul (0.0-0.6); BAND NEUTROPHILS % (M) 23 % (0-4); EOSINOPHILS % (M) 5 % (0-7); LYMPHOCYTES #M 0.7 10^3/ul (0.8-2.9); LYMPHOCYTES % (M) 12 % (15-51); METAMYELOCYTES %M 1 % (0-0); MONOCYTE #M 0.6 10^3/ul (0.3-0.9); MONOCYTES % (M) 10 % (0-11); PLATELET ESTIMATE NORMAL; POLYCHROMASIA 3+ (0-0); PROMYELOCYTES % (M) 1 % (0-0); REACTIVE LYMPHOCYTES% (M) 1 % (0-0); SEGMENTED NEUTROPHILS (M) % 47 % (39-77); SMUDGE%M 6 % (0-0)
[2018-05-13] MEDS: TPN 1,000 ML IV ×2 (07:48→22:56)
[2018-05-13] MEDS: ALBUTEROL/IPRATROPIUM (NEB) 3 ML AMP HHN ×3 (10:30→21:14)
[2018-05-13] MEDS: FERROUS SULFATE (EC) 325 MG TAB PO ×2 (10:33→21:29)
[2018-05-13] MEDS: FOLIC ACID 1 MG TAB PO (10:33)
[2018-05-13] MEDS: FAMOTIDINE 20 MG TAB PO (10:33)
[2018-05-13] MEDS: CHOLECALCIFEROL 1,000 UNIT TAB PO (10:34)
[2018-05-13] MEDS: LOPERAMIDE 2 MG CAP PO ×2 (10:34→21:29)
[2018-05-13] MEDS: FLUTICASONE 0.05% 16 GM NAS SPRAY NASAL (10:35)
[2018-05-13] MEDS: FAT EMULSION 20% 250 ML IV (10:35)
[2018-05-13] MEDS: BALSAM PERU/CASTOR OIL 60 GM TUBE TOP (10:36)
[2018-05-13] MEDS: LEVOFLOXACIN 250MG/D5W (PMX) 50 ML IVPB (13:22)
[2018-05-13] MEDS: VANCOMYCIN 1 GM 250 ML IVPB (16:16)
[2018-05-13] MEDS: INSULIN GLARGINE [LANTus] (100 UNITS/ML) SYG SC (21:33)
[2018-05-14] MEDS: FLUTICASONE 0.05% 16 GM NAS SPRAY NASAL ×3 (00:24→20:28)
[2018-05-14] MEDS: BALSAM PERU/CASTOR OIL 60 GM TUBE TOP ×3 (00:24→20:28)
[2018-05-14] MEDS: INSULIN ASPART [NOVOLOG] 3 ML PEN SC ×6 (00:41→20:28)
[2018-05-14] MEDS: ACCU-CHEK XX ×7 (01:02→20:44)
[2018-05-14] MEDS: LEVOTHYROXINE 50 MCG TAB PO (05:38)
[2018-05-14] MEDS: metroNIDAZOLE 500 MG/NS (PMX) 100 ML IVPB (05:44)
[2018-05-14] MEDS: ALBUTEROL/IPRATROPIUM (NEB) 3 ML AMP HHN ×3 (08:00→20:01)
[2018-05-14] MEDS: INSULIN GLARGINE [LANTus] (100 UNITS/ML) SYG SC ×2 (09:38→20:33)
[2018-05-14] MEDS: MIDODRINE 5 MG TAB PO (09:50)
[2018-05-14] MEDS: FOLIC ACID 1 MG TAB PO (09:51)
[2018-05-14] MEDS: LORATADINE 10 MG TAB NGT (09:51)
[2018-05-14] MEDS: LOPERAMIDE 2 MG CAP PO ×2 (09:51→21:20)
[2018-05-14] MEDS: FERROUS SULFATE (EC) 325 MG TAB PO ×2 (09:51→20:27)
[2018-05-14] MEDS: FAMOTIDINE 20 MG TAB PO (09:51)
[2018-05-14] MEDS: CHOLECALCIFEROL 1,000 UNIT TAB PO (09:51)
[2018-05-14] MEDS: FAT EMULSION 20% 250 ML IV (11:11)
[2018-05-14] MEDS: ALBUMIN HUMAN 25% 100 ML IV ×2 (11:33→12:42)
[2018-05-14] MEDS: TPN 1,000 ML IV (13:21)
[2018-05-14] MEDS: HEPARIN 1000 UNITS/ML 10 ML INJ CATHETER (14:18)
[2018-05-15] MEDS: INSULIN ASPART [NOVOLOG] 3 ML PEN SC ×6 (01:14→21:00)
[2018-05-15] MEDS: ACCU-CHEK XX ×7 (01:14→21:00)
[2018-05-15] MEDS: TPN 1,000 ML IV ×2 (05:27→22:30)
[2018-05-15] MEDS: LEVOTHYROXINE 50 MCG TAB PO (05:42)
[2018-05-15 06:52] LABS: ADD MAN DIFF? NO
[2018-05-15 06:57] LABS: BASOPHIL # 0.1 10^3/ul (0.0-0.1); BASOPHILS % 1.4 % (0.0-2.0); EOSINOPHILS # 0.2 10^3/ul (0.0-0.5); EOSINOPHILS % 3.9 % (0.0-7.0); HEMATOCRIT 26.5 % (42.0-52.0); HEMOGLOBIN 8.3 g/dl (14.0-18.0); LYMPHOCYTES # 0.6 10^3/ul (0.8-2.9); LYMPHOCYTES % 10.7 % (15.0-51.0); MEAN CORPUSCULAR HEMOGLOBIN 29.3 pg (29.0-33.0); MEAN CORPUSCULAR HGB CONC 31.3 g/dl (32.0-37.0); MEAN CORPUSCULAR VOLUME 93.6 fl (82.0-101.0); MEAN PLATELET VOLUME 11.5 fl (7.4-10.4); MONOCYTE # 0.8 10^3/ul (0.3-0.9); MONOCYTES % 14.5 % (0.0-11.0); NEUTROPHIL # 3.9 10^3/ul (1.6-7.5); NEUTROPHILS % 67.9 % (39.0-77.0); PLATELET COUNT 159 10^3/UL (140-415); POSITIVE DIFF @See below; RED BLOOD COUNT 2.83 10^6/ul (4.70-6.10); RED CELL DISTRIBUTION WIDTH 17.4 % (11.5-14.5)
[2018-05-15 06:57] LABS: WHITE BLOOD COUNT 5.7 10^3/ul (4.8-10.8)
[2018-05-15 07:16] LABS: ANION GAP 14 (5-13); BLOOD UREA NITROGEN 58 mg/dl (7-20); CALCIUM 9.5 mg/dl (8.4-10.2); CARBON DIOXIDE 22 mmol/L (21-31); CHLORIDE 100 mmol/L (97-110); CREATININE 3.68 mg/dl (0.61-1.24); GLUCOSE 131 mg/dl (70-220); MAGNESIUM 1.8 mg/dl (1.7-2.5); PHOSPHORUS 2.3 mg/dl (2.5-4.9); POTASSIUM 3.6 mmol/L (3.5-5.1); SODIUM 136 mmol/L (135-144)
[2018-05-15] MEDS: INSULIN GLARGINE [LANTus] (100 UNITS/ML) SYG SC ×2 (08:12→22:35)
[2018-05-15] MEDS: ALBUTEROL/IPRATROPIUM (NEB) 3 ML AMP HHN ×3 (08:48→20:06)
[2018-05-15] MEDS: FAT EMULSION 20% 250 ML IV (08:59)
[2018-05-15] MEDS: CHOLECALCIFEROL 1,000 UNIT TAB PO (09:06)
[2018-05-15] MEDS: FOLIC ACID 1 MG TAB PO (09:06)
[2018-05-15] MEDS: FAMOTIDINE 20 MG TAB PO (09:06)
[2018-05-15] MEDS: FERROUS SULFATE (EC) 325 MG TAB PO ×2 (09:07→22:31)
[2018-05-15] MEDS: LOPERAMIDE 2 MG CAP PO ×2 (09:07→22:31)
[2018-05-15 09:14] LABS: ANISOCYTOSIS 1+ (0-0); BAND NEUTROPHILS #M 1.8 10^3/ul (0.0-0.6); BAND NEUTROPHILS % (M) 33 % (0-4); BURR CELLS 1+ (0-0); EOSINOPHILS % (M) 2 % (0-7); GIANT THROMBO% (M) 1 % (0-0); HYPOCHROMASIA 1+ (0-0); LYMPHOCYTES #M 0.7 10^3/ul (0.8-2.9); LYMPHOCYTES % (M) 13 % (15-51); METAMYELOCYTES %M 1 % (0-0); MONOCYTE #M 0.5 10^3/ul (0.3-0.9); MONOCYTES % (M) 10 % (0-11); PLATELET ESTIMATE NORMAL; POLYCHROMASIA 2+ (0-0); REACTIVE LYMPHOCYTES #M 0.2 10^3/ul (0.0-0.0); REACTIVE LYMPHOCYTES% (M) 4 % (0-0); SEG NEUT #M 2.2 10^3/ul (1.6-7.5); SEGMENTED NEUTROPHILS (M) % 37 % (39-77); SMUDGE%M 7 % (0-0); SPHEROCYTES 1+ (0-0); TOXIC GRANULATION 2+ (0-0)
[2018-05-15] MEDS: FLUTICASONE 0.05% 16 GM NAS SPRAY NASAL ×2 (09:14→22:31)
[2018-05-15] MEDS: BALSAM PERU/CASTOR OIL 60 GM TUBE TOP ×2 (09:27→22:32)
[2018-05-15] MEDS: SODIUM PHOSPHATE 15 MMOL in SOD CHLORIDE 0.9% 250 ML IV* (13:18)
[2018-05-16] MEDS: INSULIN ASPART [NOVOLOG] 3 ML PEN SC ×6 (01:00→23:10)
[2018-05-16] MEDS: ACCU-CHEK XX ×7 (01:00→21:00)
[2018-05-16] MEDS: LEVOTHYROXINE 50 MCG TAB PO (05:59)
[2018-05-16 07:27] LABS: ABNORMAL IP MESSAGE 1; HEMATOCRIT 27.4 % (42.0-52.0); HEMOGLOBIN 8.6 g/dl (14.0-18.0); MEAN CORPUSCULAR HEMOGLOBIN 29.1 pg (29.0-33.0); MEAN CORPUSCULAR HGB CONC 31.4 g/dl (32.0-37.0); MEAN CORPUSCULAR VOLUME 92.6 fl (82.0-101.0); MEAN PLATELET VOLUME 11.7 fl (7.4-10.4); PLATELET COUNT 178 10^3/UL (140-415); POSITIVE DIFF @See below; RED BLOOD COUNT 2.96 10^6/ul (4.70-6.10); RED CELL DISTRIBUTION WIDTH 17.2 % (11.5-14.5)
[2018-05-16 07:27] LABS: WHITE BLOOD COUNT 7.2 10^3/ul (4.8-10.8)
[2018-05-16 07:30] LABS: ADD MAN DIFF? YES
[2018-05-16] MEDS: INSULIN GLARGINE [LANTus] (100 UNITS/ML) SYG SC ×2 (07:45→23:10)
[2018-05-16 07:48] LABS: MAGNESIUM 1.7 mg/dl (1.7-2.5)
[2018-05-16 07:51] LABS: ANION GAP 14 (5-13); BLOOD UREA NITROGEN 74 mg/dl (7-20); CALCIUM 9.7 mg/dl (8.4-10.2); CARBON DIOXIDE 21 mmol/L (21-31); CHLORIDE 101 mmol/L (97-110); CREATININE 4.61 mg/dl (0.61-1.24); GLUCOSE 71 mg/dl (70-220); POTASSIUM 3.7 mmol/L (3.5-5.1); SODIUM 136 mmol/L (135-144)
[2018-05-16 07:54] LABS: ALBUMIN 2.5 g/dl (3.3-4.9); ANION GAP 14 (5-13); BLOOD UREA NITROGEN 73 mg/dl (7-20); CALCIUM 9.7 mg/dl (8.4-10.2); CARBON DIOXIDE 20 mmol/L (21-31); CHLORIDE 102 mmol/L (97-110); CREATININE 4.64 mg/dl (0.61-1.24); GLUCOSE 71 mg/dl (70-220); PHOSPHORUS 3.7 mg/dl (2.5-4.9); POTASSIUM 3.7 mmol/L (3.5-5.1); SODIUM 136 mmol/L (135-144)
[2018-05-16 08:03] LABS: ANISOCYTOSIS 1+ (0-0); BAND NEUTROPHILS #M 1.9 10^3/ul (0.0-0.6); BAND NEUTROPHILS % (M) 27 % (0-4); BASOPHIL #M 0.1 10^3/ul (0.0-0.0); BASOPHILS % (M) 2 % (0-2); BURR CELLS 1+ (0-0); ELLIPTO 1+ (0-0); EOSINOPHILS % (M) 9 % (0-7); LYMPHOCYTES #M 1.2 10^3/ul (0.8-2.9); LYMPHOCYTES % (M) 18 % (15-51); MONOCYTE #M 0.3 10^3/ul (0.3-0.9); MONOCYTES % (M) 5 % (0-11); PLATELET ESTIMATE NORMAL; POIKILOCYTOSIS 1+ (0-0); POLYCHROMASIA 1+ (0-0); SEG NEUT #M 2.9 10^3/ul (1.6-7.5); SEGMENTED NEUTROPHILS (M) % 39 % (39-77); SMUDGE%M 7 % (0-0)
[2018-05-16] MEDS: ALBUTEROL/IPRATROPIUM (NEB) 3 ML AMP HHN ×3 (08:07→19:52)
[2018-05-16] MEDS: LORATADINE 10 MG TAB NGT (08:30)
[2018-05-16] MEDS: LOPERAMIDE 2 MG CAP PO ×2 (09:25→23:00)
[2018-05-16] MEDS: CHOLECALCIFEROL 1,000 UNIT TAB PO (09:26)
[2018-05-16] MEDS: FAMOTIDINE 20 MG TAB PO (09:26)
[2018-05-16] MEDS: FERROUS SULFATE (EC) 325 MG TAB PO ×2 (09:26→23:00)
[2018-05-16] MEDS: FOLIC ACID 1 MG TAB PO (09:28)
[2018-05-16] MEDS: MIDODRINE 5 MG TAB PO (09:28)
[2018-05-16] MEDS: FLUTICASONE 0.05% 16 GM NAS SPRAY NASAL ×2 (09:35→23:00)
[2018-05-16] MEDS: FAT EMULSION 20% 250 ML IV ×2 (09:36→10:40)
[2018-05-16] MEDS: BALSAM PERU/CASTOR OIL 60 GM TUBE TOP ×2 (09:55→23:01)
[2018-05-16] MEDS: TPN 1,000 ML IV (11:52)
[2018-05-17] MEDS: ACCU-CHEK XX ×7 (01:00→21:00)
[2018-05-17] MEDS: ALBUMIN HUMAN 25% 100 ML IV ×4 (01:48→12:15)
[2018-05-17] MEDS: INSULIN ASPART [NOVOLOG] 3 ML PEN SC ×6 (02:00→21:00)
[2018-05-17] MEDS: TPN 1,000 ML IV ×2 (03:32→18:56)
[2018-05-17] MEDS: HEPARIN 1000 UNITS/ML 10 ML INJ CATHETER (04:46)
[2018-05-17] MEDS: LEVOTHYROXINE 50 MCG TAB PO (06:00)
[2018-05-17] MEDS: ALBUTEROL/IPRATROPIUM (NEB) 3 ML AMP HHN ×3 (07:42→19:24)
[2018-05-17] MEDS: INSULIN GLARGINE [LANTus] (100 UNITS/ML) SYG SC ×2 (08:47→22:24)
[2018-05-17] MEDS: FOLIC ACID 1 MG TAB PO ×2 (08:56→09:00)
[2018-05-17] MEDS: FERROUS SULFATE (EC) 325 MG TAB PO ×3 (08:56→21:00)
[2018-05-17] MEDS: FAMOTIDINE 20 MG TAB PO ×2 (08:56→09:00)
[2018-05-17] MEDS: CHOLECALCIFEROL 1,000 UNIT TAB PO ×2 (08:56→09:00)
[2018-05-17] MEDS: FAT EMULSION 20% 250 ML IV (08:56)
[2018-05-17] MEDS: LOPERAMIDE 2 MG CAP PO ×3 (08:56→21:00)
[2018-05-17] MEDS: FLUTICASONE 0.05% 16 GM NAS SPRAY NASAL ×2 (08:57→22:18)
[2018-05-17] MEDS: BALSAM PERU/CASTOR OIL 60 GM TUBE TOP ×2 (08:57→22:18)
[2018-05-17 09:05] LABS: TRIGLYCERIDES 40 mg/dl (0-149)
[2018-05-17 09:08] LABS: ANION GAP 14 (5-13); BLOOD UREA NITROGEN 86 mg/dl (7-20); CALCIUM 10.1 mg/dl (8.4-10.2); CARBON DIOXIDE 18 mmol/L (21-31); CHLORIDE 105 mmol/L (97-110); CREATININE 4.94 mg/dl (0.61-1.24); GLUCOSE 124 mg/dl (70-220); MAGNESIUM 1.8 mg/dl (1.7-2.5); POTASSIUM 3.9 mmol/L (3.5-5.1); SODIUM 137 mmol/L (135-144)
[2018-05-17 09:12] LABS: PREALBUMIN 5.3 mg/dl (17.6-36.0)
[2018-05-17] MEDS: NORepinephrine 8MG/250 ML (PMX 250 ML IV (20:34)
[2018-05-18] MEDS: INSULIN ASPART [NOVOLOG] 3 ML PEN SC (01:18)
[2018-05-18] MEDS: ACCU-CHEK XX ×3 (01:19→05:00)
[2018-05-18] MEDS: PHENYLephrine 40 MG in DEXTROSE 5% 246 ML IV ×2 (01:44→04:20)
[2018-05-18] MEDS: NORepinephrine 8MG/250 ML (PMX 250 ML IV (02:33)
[2018-05-18] MEDS ORDERED: LEVALBUTEROL (NEB) 1.25 MG/0.5 ML AMP HHN (04:00)
[2018-05-18] MEDS: VASOPRESSIN 60 UNIT in DEXTROSE 5% 57 ML IV (04:26)
[2018-05-18] MEDS: FUROSEMIDE 40 MG INJ IV (04:29)
[2018-05-18 05:22] LABS: ANION GAP 19 (5-13); BLOOD UREA NITROGEN 92 mg/dl (7-20); CALCIUM 10.2 mg/dl (8.4-10.2); CARBON DIOXIDE 17 mmol/L (21-31); CHLORIDE 100 mmol/L (97-110); CREATININE 5.67 mg/dl (0.61-1.24); GLUCOSE 289 mg/dl (70-220); MAGNESIUM 1.8 mg/dl (1.7-2.5); PHOSPHORUS 5.3 mg/dl (2.5-4.9); POTASSIUM 3.8 mmol/L (3.5-5.1); SODIUM 136 mmol/L (135-144)
[2018-05-18] MEDS: LORAZEPAM 2 MG INJ IV (05:25)
[2018-05-18] MEDS: morphine 2 MG INJ IV (05:26)
[2018-05-18] MEDS ORDERED: ATROPINE SULFATE 1% 5ML SL (05:30)
[2018-05-18] MEDS ORDERED: morphine 2 MG INJ IV (05:30)
[2018-05-18] MEDS ORDERED: LORAZEPAM 2 MG INJ IV (05:30)
== END 2018-05-18 06:05 | disposition expired | DRG 329 ==
LOC: ICU 05-11 09:38 → TEL 05-13 18:20 → ICU 05-17 20:03 → MS1 04-28 15:34 → E/R 06:31 → ICU 04-23 22:20 → TEL 10:57
PROVIDERS: Internal Medicine
PROC: 0DTF0ZZ Resection of Right Large Intestine, Open Approach (ICD-10-PCS; principal; 2018-04-15 15:30)
PROC: 0DTL0ZZ Resection of Transverse Colon, Open Approach (ICD-10-PCS; 2018-04-15 15:30)
PROC: 0DBM0ZZ Excision of Descending Colon, Open Approach (ICD-10-PCS; 2018-04-15 15:30)
PROC: 0DBN0ZZ Excision of Sigmoid Colon, Open Approach (ICD-10-PCS; 2018-04-15 15:30)
PROC: 0DBV0ZX Excision of Mesentery, Open Approach, Diagnostic (ICD-10-PCS; 2018-04-15 15:30)
PROC: 0DBA0ZZ Excision of Jejunum, Open Approach (ICD-10-PCS; 2018-04-15 15:30)
PROC: 5A1D70Z Performance of Urinary Filtration, Intermittent, Less than 6 Hours Per Day (ICD-10-PCS; 2018-04-15 15:30)
PROC: 0DB68ZX Excision of Stomach, Via Natural or Artificial Opening Endoscopic, Diagnostic (ICD-10-PCS; 2018-04-15 15:30)
PROC: 0DB98ZX Excision of Duodenum, Via Natural or Artificial Opening Endoscopic, Diagnostic (ICD-10-PCS; 2018-04-15 15:30)
PROC: 0DBK8ZX Excision of Ascending Colon, Via Natural or Artificial Opening Endoscopic, Diagnostic (ICD-10-PCS; 2018-04-15 15:30)
PROC: 0DBL8ZX Excision of Transverse Colon, Via Natural or Artificial Opening Endoscopic, Diagnostic (ICD-10-PCS; 2018-04-15 15:30)
PROC: 0JHN3XZ Insertion of Tunneled Vascular Access Device into Right Lower Leg Subcutaneous Tissue and Fascia, Percutaneous Approach (ICD-10-PCS; 2018-04-15 15:30)
PROC: 02H633Z Insertion of Infusion Device into Right Atrium, Percutaneous Approach (ICD-10-PCS; 2018-04-15 15:30)
DX: C18.2 Malignant neoplasm of ascending colon (principal); N18.6 End stage renal disease; G92 Toxic encephalopathy; I50.23 Acute on chronic systolic (congestive) heart failure; C49.A4 Gastrointestinal stromal tumor of large intestine; K92.1 Melena; I42.9 Cardiomyopathy, unspecified; R18.8 Other ascites; I82.621 Acute embolism and thrombosis of deep veins of right upper extremity; I13.2 Hypertensive heart and chronic kidney disease with heart failure and with stage 5 chronic kidney disease, or end stage renal disease; I82.612 Acute embolism and thrombosis of superficial veins of left upper extremity; C78.4 Secondary malignant neoplasm of small intestine; T82.868A Thrombosis due to vascular prosthetic devices, implants and grafts, initial encounter; K63.2 Fistula of intestine; R57.9 Shock, unspecified; K20.9 Esophagitis, unspecified; E03.9 Hypothyroidism, unspecified; E78.5 Hyperlipidemia, unspecified; E11.22 Type 2 diabetes mellitus with diabetic chronic kidney disease; K74.60 Unspecified cirrhosis of liver; E11.649 Type 2 diabetes mellitus with hypoglycemia without coma; D50.0 Iron deficiency anemia secondary to blood loss (chronic); D63.1 Anemia in chronic kidney disease; D73.5 Infarction of spleen; I95.9 Hypotension, unspecified; K29.70 Gastritis, unspecified, without bleeding; K29.80 Duodenitis without bleeding; E87.5 Hyperkalemia; I27.20 Pulmonary hypertension, unspecified; J32.8 Other chronic sinusitis; R62.7 Adult failure to thrive; Y83.2 Surgical operation with anastomosis, bypass or graft as the cause of abnormal reaction of the patient, or of later complication, without mention of misadventure at the time of the procedure; Z99.2 Dependence on renal dialysis; Z68.25 Body mass index [BMI] 25.0-25.9, adult; Z95.0 Presence of cardiac pacemaker
CPT/HCPCS: 36430; 36600; 70450; 71045; 74018; 74177; 76937; 78278; 80048; 80051; 80053; 80069; 80202; 82140; 82150; 82270; 82378; 82607; 82803; 82947; 82962; 83036; 83540; 83690; 83735; 84100; 84132; 84134; 84439; 84443; 84478; 84484; 84560; 85014; 85018; 85025; 85045; 85049; 85610; 85670; 85730; 86706; 86850; 86900; 86901; 86920; 87040; 87045; 87081; 87340; 88305; 88307; 88312; 88341; 88342; 90935; 92526; 92610; 93005; 93306; 93931; 93970; 93971; 94640; 96361; 96374; 97110; 97116; 97162; 97164; 97165; 97530; 97535; 99291-25